=== PATIENT | female | born 1980 | race American Indian/Alaskan Native ===

== ENCOUNTER 2018-06-21 08:20 | Outpatient (CLI) | payer MEDICAID ==
[2018-06-21] MEDS ORDERED: XYLOCAINE TOPICAL 4% TP ONE ×2 (08:33→16:06)
[2018-06-21] MEDS ORDERED: SILVER NITRATE TP ONE ×2 (08:55→16:06)
== END 2018-06-21 08:21 | disposition home or self-care (01) ==
LOC: WOUND 08:20
PROVIDERS: ATTEND Surgery
DX: T81.89XA Other complications of procedures, not elsewhere classified, initial encounter (principal); E11.621 Type 2 diabetes mellitus with foot ulcer; E11.40 Type 2 diabetes mellitus with diabetic neuropathy, unspecified; L97.523 Non-pressure chronic ulcer of other part of left foot with necrosis of muscle; E11.69 Type 2 diabetes mellitus with other specified complication; M86.8X7 Other osteomyelitis, ankle and foot; X58.XXXA Exposure to other specified factors, initial encounter; Y93.89 Activity, other specified; Y92.89 Other specified places as the place of occurrence of the external cause; Y99.8 Other external cause status
CPT/HCPCS: 11043; 11046; G0463; 99204

== ENCOUNTER 2018-06-27 08:21 | Outpatient (CLI) | payer MEDICAID ==
[2018-06-27] MEDS ORDERED: XYLOCAINE TOPICAL 4% TP ONE ×2 (08:38→09:36)
[2018-06-27] MEDS ORDERED: SILVER NITRATE TP ONE ×2 (08:53→09:36)
[2018-06-27] MEDS ORDERED: DAKIN'S FULL STRENGTH ONE (09:14)
[2018-06-27] MEDS ORDERED: DAKIN'S FULL STRENGTH TP ONE (09:36)
== END 2018-06-27 08:22 | disposition home or self-care (01) ==
LOC: WOUND 08:21
PROVIDERS: ATTEND Surgery
DX: T81.89XD Other complications of procedures, not elsewhere classified, subsequent encounter (principal); E11.621 Type 2 diabetes mellitus with foot ulcer; L97.523 Non-pressure chronic ulcer of other part of left foot with necrosis of muscle; E11.40 Type 2 diabetes mellitus with diabetic neuropathy, unspecified; E11.69 Type 2 diabetes mellitus with other specified complication; M86.8X7 Other osteomyelitis, ankle and foot; X58.XXXD Exposure to other specified factors, subsequent encounter

== ENCOUNTER 2018-07-05 12:49 | Outpatient (CLI) | payer MEDICAID ==
[2018-07-05] MEDS ORDERED: XYLOCAINE TOPICAL 4% TP ONE ×2 (13:24→15:41)
== END 2018-07-05 12:50 | disposition home or self-care (01) ==
LOC: WOUND 12:49
PROVIDERS: ATTEND Surgery
DX: T81.89XD Other complications of procedures, not elsewhere classified, subsequent encounter (principal); E11.621 Type 2 diabetes mellitus with foot ulcer; L97.523 Non-pressure chronic ulcer of other part of left foot with necrosis of muscle; E11.40 Type 2 diabetes mellitus with diabetic neuropathy, unspecified; E11.69 Type 2 diabetes mellitus with other specified complication; M86.8X7 Other osteomyelitis, ankle and foot; X58.XXXD Exposure to other specified factors, subsequent encounter
CPT/HCPCS: 11043; 82962; 97605; G0277; 99183

== ENCOUNTER 2018-07-06 12:58 | Outpatient (CLI) | payer MEDICAID | END 2018-07-06 12:59 | disposition home or self-care (01) | LOC: WOUND 12:58 | PROVIDERS: ATTEND Surgery | DX: E11.621 Type 2 diabetes mellitus with foot ulcer (principal); L97.523 Non-pressure chronic ulcer of other part of left foot with necrosis of muscle; E11.40 Type 2 diabetes mellitus with diabetic neuropathy, unspecified; E11.69 Type 2 diabetes mellitus with other specified complication; M86.8X7 Other osteomyelitis, ankle and foot | CPT/HCPCS: 82962; G0277; 99183 ==

== ENCOUNTER 2018-07-07 12:17 | Outpatient (CLI) | payer MEDICAID | END 2018-07-07 12:18 | disposition home or self-care (01) | LOC: WOUND 12:17 | PROVIDERS: ATTEND Surgery | DX: E11.621 Type 2 diabetes mellitus with foot ulcer (principal); L97.523 Non-pressure chronic ulcer of other part of left foot with necrosis of muscle; E11.40 Type 2 diabetes mellitus with diabetic neuropathy, unspecified; E11.69 Type 2 diabetes mellitus with other specified complication; M86.8X7 Other osteomyelitis, ankle and foot | CPT/HCPCS: 82962; G0277; 99183 ==

== ENCOUNTER 2018-07-11 12:00 | Outpatient (CLI) | payer MEDICAID ==
[2018-07-11] MEDS ORDERED: XYLOCAINE TOPICAL 4% TP ONE ×2 (12:06→12:32)
[2018-07-11] MEDS ORDERED: DAKIN'S FULL STRENGTH ONE (13:09)
[2018-07-13] MEDS ORDERED: DAKIN'S FULL STRENGTH TP ONE (12:44)
== END 2018-07-11 12:01 | disposition home or self-care (01) ==
LOC: WOUND 12:00
PROVIDERS: ATTEND Surgery
DX: E11.621 Type 2 diabetes mellitus with foot ulcer (principal); L97.523 Non-pressure chronic ulcer of other part of left foot with necrosis of muscle; E11.40 Type 2 diabetes mellitus with diabetic neuropathy, unspecified; E11.69 Type 2 diabetes mellitus with other specified complication; M86.8X7 Other osteomyelitis, ankle and foot
CPT/HCPCS: 87075; 87116

== ENCOUNTER 2018-09-18 09:01 | Outpatient (CLI) | payer MEDICAID ==
[2018-09-18] MEDS ORDERED: XYLOCAINE TOPICAL 4% TP ONE (09:12)
== END 2018-09-18 09:02 | disposition home or self-care (01) ==
LOC: WOUND 09:01
PROVIDERS: ATTEND Surgery
DX: T81.89XD Other complications of procedures, not elsewhere classified, subsequent encounter (principal); E11.621 Type 2 diabetes mellitus with foot ulcer; L97.523 Non-pressure chronic ulcer of other part of left foot with necrosis of muscle; E11.69 Type 2 diabetes mellitus with other specified complication; M86.8X7 Other osteomyelitis, ankle and foot; E11.40 Type 2 diabetes mellitus with diabetic neuropathy, unspecified; Y83.8 Other surgical procedures as the cause of abnormal reaction of the patient, or of later complication, without mention of misadventure at the time of the procedure
CPT/HCPCS: 11042; G0463; 99213

== ENCOUNTER 2018-09-21 11:41 | Outpatient (CLI) | payer MEDICAID | END 2018-09-21 11:42 | disposition home or self-care (01) | LOC: WOUND 11:41 | PROVIDERS: ATTEND Surgery | DX: T81.89XD Other complications of procedures, not elsewhere classified, subsequent encounter (principal); E11.621 Type 2 diabetes mellitus with foot ulcer; L97.523 Non-pressure chronic ulcer of other part of left foot with necrosis of muscle; E11.69 Type 2 diabetes mellitus with other specified complication; M86.8X7 Other osteomyelitis, ankle and foot; E11.40 Type 2 diabetes mellitus with diabetic neuropathy, unspecified; Y83.8 Other surgical procedures as the cause of abnormal reaction of the patient, or of later complication, without mention of misadventure at the time of the procedure | CPT/HCPCS: 99213; G0463 ==

== ENCOUNTER 2018-09-28 11:23 | Outpatient (CLI) | payer MEDICAID | END 2018-09-28 11:24 | disposition home or self-care (01) | LOC: WOUND 11:23 | PROVIDERS: ATTEND Surgery | DX: T81.89XD Other complications of procedures, not elsewhere classified, subsequent encounter (principal); E11.621 Type 2 diabetes mellitus with foot ulcer; L97.523 Non-pressure chronic ulcer of other part of left foot with necrosis of muscle; E11.69 Type 2 diabetes mellitus with other specified complication; M86.8X7 Other osteomyelitis, ankle and foot; E11.40 Type 2 diabetes mellitus with diabetic neuropathy, unspecified; Y83.8 Other surgical procedures as the cause of abnormal reaction of the patient, or of later complication, without mention of misadventure at the time of the procedure | CPT/HCPCS: 99214; G0463 ==

== ENCOUNTER 2018-10-02 09:46 | Outpatient (CLI) | payer MEDICAID ==
[2018-10-02] MEDS ORDERED: AD OINTMENT TP PRN (10:12)
[2018-10-02] MEDS ORDERED: XYLOCAINE TOPICAL 4% TP ONE (10:12)
== END 2018-10-02 09:47 | disposition home or self-care (01) ==
LOC: WOUND 09:46
PROVIDERS: ATTEND Surgery
DX: T81.89XD Other complications of procedures, not elsewhere classified, subsequent encounter (principal); E11.621 Type 2 diabetes mellitus with foot ulcer; E11.40 Type 2 diabetes mellitus with diabetic neuropathy, unspecified; L97.523 Non-pressure chronic ulcer of other part of left foot with necrosis of muscle; E11.69 Type 2 diabetes mellitus with other specified complication; M86.8X7 Other osteomyelitis, ankle and foot; Y83.8 Other surgical procedures as the cause of abnormal reaction of the patient, or of later complication, without mention of misadventure at the time of the procedure
CPT/HCPCS: 99215; A6250; G0463

== ENCOUNTER 2018-10-05 13:04 | Outpatient (CLI) | payer MEDICAID | END 2018-10-05 13:05 | disposition home or self-care (01) | LOC: WOUND 13:04 | PROVIDERS: ATTEND Surgery | DX: T81.89XD Other complications of procedures, not elsewhere classified, subsequent encounter (principal); E11.621 Type 2 diabetes mellitus with foot ulcer; L97.523 Non-pressure chronic ulcer of other part of left foot with necrosis of muscle; E11.69 Type 2 diabetes mellitus with other specified complication; M86.8X7 Other osteomyelitis, ankle and foot; E11.40 Type 2 diabetes mellitus with diabetic neuropathy, unspecified; Y83.8 Other surgical procedures as the cause of abnormal reaction of the patient, or of later complication, without mention of misadventure at the time of the procedure | CPT/HCPCS: 99213; G0463 ==

== ENCOUNTER 2018-10-09 09:16 | Outpatient (CLI) | payer MEDICAID | END 2018-10-09 09:17 | disposition home or self-care (01) | LOC: WOUND 09:16 | PROVIDERS: ATTEND Surgery | DX: T81.89XD Other complications of procedures, not elsewhere classified, subsequent encounter (principal); E11.621 Type 2 diabetes mellitus with foot ulcer; L97.523 Non-pressure chronic ulcer of other part of left foot with necrosis of muscle; E11.69 Type 2 diabetes mellitus with other specified complication; M86.8X7 Other osteomyelitis, ankle and foot; E11.40 Type 2 diabetes mellitus with diabetic neuropathy, unspecified; Y83.8 Other surgical procedures as the cause of abnormal reaction of the patient, or of later complication, without mention of misadventure at the time of the procedure ==

== ENCOUNTER 2018-10-12 11:31 | Outpatient (CLI) | payer MEDICAID | END 2018-10-12 11:32 | disposition home or self-care (01) | LOC: WOUND 11:31 | PROVIDERS: ATTEND Surgery | DX: T81.89XD Other complications of procedures, not elsewhere classified, subsequent encounter (principal); E11.621 Type 2 diabetes mellitus with foot ulcer; L97.523 Non-pressure chronic ulcer of other part of left foot with necrosis of muscle; E11.69 Type 2 diabetes mellitus with other specified complication; M86.8X7 Other osteomyelitis, ankle and foot; E11.40 Type 2 diabetes mellitus with diabetic neuropathy, unspecified; Y83.8 Other surgical procedures as the cause of abnormal reaction of the patient, or of later complication, without mention of misadventure at the time of the procedure | CPT/HCPCS: 99213; G0463 ==

== ENCOUNTER 2018-10-19 13:02 | Outpatient (CLI) | payer MEDICAID | END 2018-10-19 13:03 | disposition home or self-care (01) | LOC: WOUND 13:02 | PROVIDERS: ATTEND Surgery | DX: T81.89XD Other complications of procedures, not elsewhere classified, subsequent encounter (principal); E11.621 Type 2 diabetes mellitus with foot ulcer; L97.523 Non-pressure chronic ulcer of other part of left foot with necrosis of muscle; E11.69 Type 2 diabetes mellitus with other specified complication; M86.8X7 Other osteomyelitis, ankle and foot; E11.40 Type 2 diabetes mellitus with diabetic neuropathy, unspecified; Y83.8 Other surgical procedures as the cause of abnormal reaction of the patient, or of later complication, without mention of misadventure at the time of the procedure | CPT/HCPCS: 99213; G0463 ==

== ENCOUNTER 2018-10-23 10:06 | Outpatient (CLI) | payer MEDICAID | END 2018-10-23 10:07 | disposition home or self-care (01) | LOC: WOUND 10:06 | PROVIDERS: ATTEND Surgery | DX: T81.89XD Other complications of procedures, not elsewhere classified, subsequent encounter (principal); E11.621 Type 2 diabetes mellitus with foot ulcer; L97.523 Non-pressure chronic ulcer of other part of left foot with necrosis of muscle; E11.69 Type 2 diabetes mellitus with other specified complication; M86.8X7 Other osteomyelitis, ankle and foot; E11.40 Type 2 diabetes mellitus with diabetic neuropathy, unspecified; Y83.8 Other surgical procedures as the cause of abnormal reaction of the patient, or of later complication, without mention of misadventure at the time of the procedure ==

== ENCOUNTER 2018-10-26 11:24 | Outpatient (CLI) | payer MEDICAID | END 2018-10-26 11:25 | disposition home or self-care (01) | LOC: WOUND 11:24 | PROVIDERS: ATTEND Surgery | DX: T81.89XD Other complications of procedures, not elsewhere classified, subsequent encounter (principal); E11.621 Type 2 diabetes mellitus with foot ulcer; L97.523 Non-pressure chronic ulcer of other part of left foot with necrosis of muscle; E11.69 Type 2 diabetes mellitus with other specified complication; M86.8X7 Other osteomyelitis, ankle and foot; E11.40 Type 2 diabetes mellitus with diabetic neuropathy, unspecified; Y83.8 Other surgical procedures as the cause of abnormal reaction of the patient, or of later complication, without mention of misadventure at the time of the procedure | CPT/HCPCS: 99213; G0463 ==

== ENCOUNTER 2018-10-30 09:17 | Outpatient (CLI) | payer MEDICAID | END 2018-10-30 09:18 | disposition home or self-care (01) | LOC: WOUND 09:17 | PROVIDERS: ATTEND Surgery | DX: T81.89XD Other complications of procedures, not elsewhere classified, subsequent encounter (principal); E11.621 Type 2 diabetes mellitus with foot ulcer; L97.523 Non-pressure chronic ulcer of other part of left foot with necrosis of muscle; E11.69 Type 2 diabetes mellitus with other specified complication; M86.8X7 Other osteomyelitis, ankle and foot; L84 Corns and callosities; E11.40 Type 2 diabetes mellitus with diabetic neuropathy, unspecified; Y83.8 Other surgical procedures as the cause of abnormal reaction of the patient, or of later complication, without mention of misadventure at the time of the procedure ==

== ENCOUNTER 2018-11-06 09:22 | Outpatient (CLI) | payer MEDICAID | END 2018-11-06 09:23 | disposition home or self-care (01) | LOC: WOUND 09:22 | PROVIDERS: ATTEND Surgery | DX: T81.89XD Other complications of procedures, not elsewhere classified, subsequent encounter (principal); E11.621 Type 2 diabetes mellitus with foot ulcer; L97.523 Non-pressure chronic ulcer of other part of left foot with necrosis of muscle; E11.69 Type 2 diabetes mellitus with other specified complication; M86.8X7 Other osteomyelitis, ankle and foot; E11.40 Type 2 diabetes mellitus with diabetic neuropathy, unspecified; Y83.8 Other surgical procedures as the cause of abnormal reaction of the patient, or of later complication, without mention of misadventure at the time of the procedure | CPT/HCPCS: 99214; G0463 ==

== ENCOUNTER 2018-11-13 09:02 | Outpatient (CLI) | payer MEDICAID | END 2018-11-13 09:03 | disposition home or self-care (01) | LOC: WOUND 09:02 | PROVIDERS: ATTEND Surgery | DX: T81.89XD Other complications of procedures, not elsewhere classified, subsequent encounter (principal); E11.621 Type 2 diabetes mellitus with foot ulcer; L97.523 Non-pressure chronic ulcer of other part of left foot with necrosis of muscle; E11.69 Type 2 diabetes mellitus with other specified complication; M86.8X7 Other osteomyelitis, ankle and foot; E11.40 Type 2 diabetes mellitus with diabetic neuropathy, unspecified; Y83.8 Other surgical procedures as the cause of abnormal reaction of the patient, or of later complication, without mention of misadventure at the time of the procedure | CPT/HCPCS: 99214; G0463 ==

== ENCOUNTER 2018-11-13 10:32 | Outpatient (CLI) | payer MEDICAID ==
--- NOTE | 2018-11-13 12:16 | Vascular Lab Report ---
FINAL REPORT EXAM: VL VENOUS DUPLEX LE LT HISTORY: PAIN AND SWELLING COMPARISON: None. TECHNIQUE: Duplex Doppler ultrasound of the veins of the bilateral lower extremities was performed. FINDINGS: The veins of the bilateral lower extremities are patent, compressible, and demonstrate normal wavefor ms and augmentation. Incidentally noted is reflux in the left saphenofemoral junction. IMPRESSION: No evidence of deep venous thrombosis of the bilateral lower extremities. Reflux in the left saphenofemoral junction.
== END 2018-11-13 10:33 | disposition home or self-care (01) ==
LOC: VAS 10:32
PROVIDERS: ATTEND Surgery
DX: E11.621 Type 2 diabetes mellitus with foot ulcer (principal); L97.523 Non-pressure chronic ulcer of other part of left foot with necrosis of muscle; M86.8X7 Other osteomyelitis, ankle and foot; K21.9 Gastro-esophageal reflux disease without esophagitis; E66.01 Morbid (severe) obesity due to excess calories

== ENCOUNTER 2018-11-20 09:39 | Outpatient (CLI) | payer MEDICAID ==
[2018-11-20] MEDS ORDERED: SILVER NITRATE TP ONE (10:15)
[2018-11-20] MEDS ORDERED: XYLOCAINE TOPICAL 4% TP ONE (10:15)
== END 2018-11-20 09:40 | disposition home or self-care (01) ==
LOC: WOUND 09:39
PROVIDERS: ATTEND Surgery
DX: T81.89XD Other complications of procedures, not elsewhere classified, subsequent encounter (principal); E11.621 Type 2 diabetes mellitus with foot ulcer; L97.523 Non-pressure chronic ulcer of other part of left foot with necrosis of muscle; E11.69 Type 2 diabetes mellitus with other specified complication; M86.8X7 Other osteomyelitis, ankle and foot; L84 Corns and callosities; E11.40 Type 2 diabetes mellitus with diabetic neuropathy, unspecified; Y83.8 Other surgical procedures as the cause of abnormal reaction of the patient, or of later complication, without mention of misadventure at the time of the procedure

== ENCOUNTER 2018-11-27 09:30 | Outpatient (CLI) | payer MEDICAID ==
[2018-11-27] MEDS ORDERED: SODIUM CHLORIDE FLUSH SYRINGE 10 ML IV PRN (10:10)
== END 2018-11-27 09:31 | disposition home or self-care (01) ==
LOC: WOUND 09:30
PROVIDERS: ATTEND Surgery
DX: T81.89XD Other complications of procedures, not elsewhere classified, subsequent encounter (principal); E11.621 Type 2 diabetes mellitus with foot ulcer; L97.523 Non-pressure chronic ulcer of other part of left foot with necrosis of muscle; E11.69 Type 2 diabetes mellitus with other specified complication; M86.8X7 Other osteomyelitis, ankle and foot; E11.40 Type 2 diabetes mellitus with diabetic neuropathy, unspecified; Y83.8 Other surgical procedures as the cause of abnormal reaction of the patient, or of later complication, without mention of misadventure at the time of the procedure
CPT/HCPCS: 99214; G0463

== ENCOUNTER 2018-12-04 09:22 | Outpatient (CLI) | payer MEDICAID ==
[2018-12-04] MEDS ORDERED: SODIUM CHLORIDE FLUSH SYRINGE 10 ML IV ONE (11:00)
== END 2018-12-04 09:23 | disposition home or self-care (01) ==
LOC: WOUND 09:22
PROVIDERS: ATTEND Surgery
DX: T81.89XD Other complications of procedures, not elsewhere classified, subsequent encounter (principal); E11.621 Type 2 diabetes mellitus with foot ulcer; L97.523 Non-pressure chronic ulcer of other part of left foot with necrosis of muscle; E11.69 Type 2 diabetes mellitus with other specified complication; M86.8X7 Other osteomyelitis, ankle and foot; E11.40 Type 2 diabetes mellitus with diabetic neuropathy, unspecified; Y83.8 Other surgical procedures as the cause of abnormal reaction of the patient, or of later complication, without mention of misadventure at the time of the procedure
CPT/HCPCS: 15275; Q4196

== ENCOUNTER 2018-12-18 09:24 | Outpatient (CLI) | payer MEDICAID ==
[2018-12-18] MEDS ORDERED: XYLOCAINE TOPICAL 4% TP ONE (09:44)
[2018-12-18] MEDS ORDERED: SODIUM CHLORIDE FLUSH SYRINGE 10 ML IV PRN (09:45)
[2018-12-18] MEDS ORDERED: AD OINTMENT TP SCH (10:00)
== END 2018-12-18 09:25 | disposition home or self-care (01) ==
LOC: WOUND 09:24
PROVIDERS: ATTEND Surgery
DX: T81.89XD Other complications of procedures, not elsewhere classified, subsequent encounter (principal); E11.621 Type 2 diabetes mellitus with foot ulcer; L97.523 Non-pressure chronic ulcer of other part of left foot with necrosis of muscle; E11.69 Type 2 diabetes mellitus with other specified complication; M86.8X7 Other osteomyelitis, ankle and foot; E11.40 Type 2 diabetes mellitus with diabetic neuropathy, unspecified; Y83.8 Other surgical procedures as the cause of abnormal reaction of the patient, or of later complication, without mention of misadventure at the time of the procedure
CPT/HCPCS: 15275; Q4196; A6250

== ENCOUNTER 2018-12-25 09:17 | Outpatient (CLI) | payer MEDICAID ==
[2018-12-25] MEDS ORDERED: SODIUM CHLORIDE FLUSH SYRINGE 10 ML IV PRN (10:14)
== END 2018-12-25 09:18 | disposition home or self-care (01) ==
LOC: WOUND 09:17
PROVIDERS: ATTEND Surgery
DX: T81.89XD Other complications of procedures, not elsewhere classified, subsequent encounter (principal); E11.621 Type 2 diabetes mellitus with foot ulcer; L97.523 Non-pressure chronic ulcer of other part of left foot with necrosis of muscle; E11.69 Type 2 diabetes mellitus with other specified complication; M86.8X7 Other osteomyelitis, ankle and foot; E11.40 Type 2 diabetes mellitus with diabetic neuropathy, unspecified; Y83.8 Other surgical procedures as the cause of abnormal reaction of the patient, or of later complication, without mention of misadventure at the time of the procedure
CPT/HCPCS: 15275; Q4196

== ENCOUNTER 2018-12-27 09:26 | Outpatient (CLI) | payer MEDICAID ==
[2018-12-27 10:54] LABS: Blood Urea Nitrogen 14 mg/dL (7-17)
--- NOTE | 2018-12-28 09:25 | Magnetic Resonance Report ---
PROCEDURE: MR LE NONJOINT LT W CON TECHNIQUE: Multisequence, multiplanar MR imaging is obtained through the left foot prior and subsequ ent to intravenous administration of 20 cc MultiHance gadolinium contrast HISTORY: ACUTE OSTEOMYELITIS OF LEFT FOOT, DIABETES, MORBID OBESITY, PAIN COMPARISONS: Radiographs 05/31/2018, MRI 06/02/2018 FINDINGS: There is confluent T1 weighted signal replacing the marrow of the fourth and fifth proximal phalanges with surrounding soft tissue edema. Enhancement within the marrow is demonstrated. Edema extends to the plantar skin surface, which is irregular and also enhancing. No focal organized fluid collection to suggest abscess formation. The fourth and fifth metatarsal heads show more mild edema and enhancem ent without loss of normal T1 weighted marrow signal. No fractures. Midfoot arthropathy is not well e valuated on this exam. The intrinsic muscles and superficial soft tissues of the more medial left foot are unremarkable and show no abnormal enhancement. Flexor and extensor tendons are intact. IMPRESSION: Osteomyelitis in the left fourth and fifth proximal phalanges appears new compared to 2018 exam. Ther e is mild edema in the fourth and fifth metatarsal heads without marrow replacing signal to suggest o steomyelitis on both sides of the metatarsal phalangeal joints. If there is concern for metatarsal ph alangeal septic arthropathy, joint aspiration is recommended. Plantar soft tissue edema in the lateral forefoot without focal fluid collection to suggest abscess f ormation. Notification initiated via Omar support associate following this dictation on 12/28/2018. This document is electronically signed by Orion Henry MD., December 28 2018 09:23:14 AM ET
== END 2018-12-27 09:27 | disposition home or self-care (01) ==
LOC: MRI 09:26
PROVIDERS: ATTEND Internal Medicine Infectious Disease
DX: M86.8X7 Other osteomyelitis, ankle and foot (principal); E11.65 Type 2 diabetes mellitus with hyperglycemia; M86.172 Other acute osteomyelitis, left ankle and foot; E66.01 Morbid (severe) obesity due to excess calories; K21.9 Gastro-esophageal reflux disease without esophagitis; J45.909 Unspecified asthma, uncomplicated
CPT/HCPCS: 36415; 73719; 82565; 84520; A9577

== ENCOUNTER 2019-01-01 09:26 | Outpatient (CLI) | payer MEDICAID ==
[2019-01-01] MEDS ORDERED: SODIUM CHLORIDE FLUSH SYRINGE 10 ML IV ONE (10:02)
== END 2019-01-01 09:27 | disposition home or self-care (01) ==
LOC: WOUND 09:26
PROVIDERS: ATTEND Surgery
DX: T81.89XD Other complications of procedures, not elsewhere classified, subsequent encounter (principal); E11.621 Type 2 diabetes mellitus with foot ulcer; L97.523 Non-pressure chronic ulcer of other part of left foot with necrosis of muscle; E11.69 Type 2 diabetes mellitus with other specified complication; M86.8X7 Other osteomyelitis, ankle and foot; E11.40 Type 2 diabetes mellitus with diabetic neuropathy, unspecified; Y83.8 Other surgical procedures as the cause of abnormal reaction of the patient, or of later complication, without mention of misadventure at the time of the procedure
CPT/HCPCS: 15275; Q4196

== ENCOUNTER 2019-01-08 09:25 | Outpatient (CLI) | payer MEDICAID ==
[2019-01-08] MEDS ORDERED: SODIUM CHLORIDE FLUSH SYRINGE 10 ML IV PRN (10:00)
[2019-01-08] MEDS ORDERED: XYLOCAINE TOPICAL 4% TP ONE (10:00)
== END 2019-01-08 09:26 | disposition home or self-care (01) ==
LOC: WOUND 09:25
PROVIDERS: ATTEND Surgery
DX: T81.89XD Other complications of procedures, not elsewhere classified, subsequent encounter (principal); E11.621 Type 2 diabetes mellitus with foot ulcer; L97.523 Non-pressure chronic ulcer of other part of left foot with necrosis of muscle; E11.69 Type 2 diabetes mellitus with other specified complication; M86.8X7 Other osteomyelitis, ankle and foot; E11.40 Type 2 diabetes mellitus with diabetic neuropathy, unspecified; Y83.8 Other surgical procedures as the cause of abnormal reaction of the patient, or of later complication, without mention of misadventure at the time of the procedure
CPT/HCPCS: 15275; Q4196

== ENCOUNTER 2019-01-15 09:27 | Outpatient (CLI) | payer MEDICAID ==
[2019-01-15] MEDS ORDERED: SODIUM CHLORIDE FLUSH SYRINGE 10 ML IV ONE (10:30)
== END 2019-01-15 09:28 | disposition home or self-care (01) ==
LOC: WOUND 09:27
PROVIDERS: ATTEND Surgery
DX: T81.89XD Other complications of procedures, not elsewhere classified, subsequent encounter (principal); E11.621 Type 2 diabetes mellitus with foot ulcer; L97.523 Non-pressure chronic ulcer of other part of left foot with necrosis of muscle; E11.69 Type 2 diabetes mellitus with other specified complication; M86.8X7 Other osteomyelitis, ankle and foot; E11.40 Type 2 diabetes mellitus with diabetic neuropathy, unspecified; Y83.8 Other surgical procedures as the cause of abnormal reaction of the patient, or of later complication, without mention of misadventure at the time of the procedure
CPT/HCPCS: 15275; Q4196

== ENCOUNTER 2019-01-22 09:22 | Outpatient (CLI) | payer MEDICAID ==
[2019-01-22] MEDS ORDERED: SODIUM CHLORIDE FLUSH SYRINGE 10 ML IV ONE (09:59)
== END 2019-01-22 09:23 | disposition home or self-care (01) ==
LOC: WOUND 09:22
PROVIDERS: ATTEND Surgery
DX: T81.89XD Other complications of procedures, not elsewhere classified, subsequent encounter (principal); E11.621 Type 2 diabetes mellitus with foot ulcer; L97.523 Non-pressure chronic ulcer of other part of left foot with necrosis of muscle; E11.69 Type 2 diabetes mellitus with other specified complication; M86.8X7 Other osteomyelitis, ankle and foot; E11.40 Type 2 diabetes mellitus with diabetic neuropathy, unspecified; Y83.8 Other surgical procedures as the cause of abnormal reaction of the patient, or of later complication, without mention of misadventure at the time of the procedure
CPT/HCPCS: 15275; Q4196

== ENCOUNTER 2019-01-29 11:54 | Outpatient (CLI) | payer MEDICAID ==
[2019-01-29] MEDS ORDERED: SODIUM CHLORIDE FLUSH SYRINGE 10 ML IV PRN ×2 (11:56→12:21)
[2019-01-29] MEDS ORDERED: SILVER NITRATE TP ONE (12:20)
[2019-01-29] MEDS ORDERED: XYLOCAINE TOPICAL 4% TP ONE (12:56)
== END 2019-01-29 11:55 | disposition home or self-care (01) ==
LOC: WOUND 11:54
PROVIDERS: ATTEND Surgery
DX: T81.89XD Other complications of procedures, not elsewhere classified, subsequent encounter (principal); E11.621 Type 2 diabetes mellitus with foot ulcer; L97.523 Non-pressure chronic ulcer of other part of left foot with necrosis of muscle; E11.69 Type 2 diabetes mellitus with other specified complication; M86.8X7 Other osteomyelitis, ankle and foot; E11.40 Type 2 diabetes mellitus with diabetic neuropathy, unspecified; Y83.8 Other surgical procedures as the cause of abnormal reaction of the patient, or of later complication, without mention of misadventure at the time of the procedure
CPT/HCPCS: 15275; Q4196

== ENCOUNTER 2019-02-13 08:24 | Outpatient (CLI) | payer MEDICAID ==
[2019-02-13] MEDS ORDERED: XYLOCAINE TOPICAL 4% TP ONE (09:00)
[2019-02-13] MEDS ORDERED: SODIUM CHLORIDE FLUSH SYRINGE 10 ML IV ONE (09:00)
== END 2019-02-13 08:25 | disposition home or self-care (01) ==
LOC: WOUND 08:24
PROVIDERS: ATTEND Surgery
DX: T81.89XD Other complications of procedures, not elsewhere classified, subsequent encounter (principal); E11.621 Type 2 diabetes mellitus with foot ulcer; L97.523 Non-pressure chronic ulcer of other part of left foot with necrosis of muscle; E11.69 Type 2 diabetes mellitus with other specified complication; M86.8X7 Other osteomyelitis, ankle and foot; E11.40 Type 2 diabetes mellitus with diabetic neuropathy, unspecified; Y83.8 Other surgical procedures as the cause of abnormal reaction of the patient, or of later complication, without mention of misadventure at the time of the procedure

== ENCOUNTER 2019-02-19 09:38 | Outpatient (CLI) | payer MEDICAID ==
[2019-02-19] MEDS ORDERED: SODIUM CHLORIDE FLUSH SYRINGE 10 ML IV ONE (10:30)
== END 2019-02-19 09:39 | disposition home or self-care (01) ==
LOC: WOUND 09:38
PROVIDERS: ATTEND Surgery
DX: T81.89XD Other complications of procedures, not elsewhere classified, subsequent encounter (principal); E11.621 Type 2 diabetes mellitus with foot ulcer; L97.523 Non-pressure chronic ulcer of other part of left foot with necrosis of muscle; E11.69 Type 2 diabetes mellitus with other specified complication; M86.8X7 Other osteomyelitis, ankle and foot; E11.40 Type 2 diabetes mellitus with diabetic neuropathy, unspecified; Y83.8 Other surgical procedures as the cause of abnormal reaction of the patient, or of later complication, without mention of misadventure at the time of the procedure
CPT/HCPCS: 15275

== ENCOUNTER 2019-02-27 09:22 | Outpatient (CLI) | payer MEDICAID ==
[2019-02-27] MEDS ORDERED: SODIUM CHLORIDE FLUSH SYRINGE 10 ML IV PRN (10:00)
[2019-02-27] MEDS ORDERED: XYLOCAINE TOPICAL 4% TP ONE (10:30)
== END 2019-02-27 09:23 | disposition home or self-care (01) ==
LOC: WOUND 09:22
PROVIDERS: ATTEND Surgery
DX: T81.89XD Other complications of procedures, not elsewhere classified, subsequent encounter (principal); E11.621 Type 2 diabetes mellitus with foot ulcer; L97.523 Non-pressure chronic ulcer of other part of left foot with necrosis of muscle; E11.69 Type 2 diabetes mellitus with other specified complication; M86.8X7 Other osteomyelitis, ankle and foot; E11.40 Type 2 diabetes mellitus with diabetic neuropathy, unspecified; Y83.8 Other surgical procedures as the cause of abnormal reaction of the patient, or of later complication, without mention of misadventure at the time of the procedure
CPT/HCPCS: 15275; Q4158

== ENCOUNTER 2019-03-05 09:19 | Outpatient (CLI) | payer MEDICAID ==
[2019-03-05] MEDS ORDERED: SILVER NITRATE TP ONE (10:00)
[2019-03-05] MEDS ORDERED: SODIUM CHLORIDE FLUSH SYRINGE 10 ML IV PRN (10:00)
== END 2019-03-05 09:20 | disposition home or self-care (01) ==
LOC: WOUND 09:19
PROVIDERS: ATTEND Surgery
DX: T81.89XD Other complications of procedures, not elsewhere classified, subsequent encounter (principal); E11.621 Type 2 diabetes mellitus with foot ulcer; L97.523 Non-pressure chronic ulcer of other part of left foot with necrosis of muscle; E11.69 Type 2 diabetes mellitus with other specified complication; M86.8X7 Other osteomyelitis, ankle and foot; E44.0 Moderate protein-calorie malnutrition; Y83.8 Other surgical procedures as the cause of abnormal reaction of the patient, or of later complication, without mention of misadventure at the time of the procedure
CPT/HCPCS: 99214; G0463

== ENCOUNTER 2019-03-12 09:39 | Outpatient (CLI) | payer MEDICAID ==
[2019-03-12] MEDS ORDERED: XYLOCAINE TOPICAL 4% TP ONE (10:00)
== END 2019-03-12 09:40 | disposition home or self-care (01) ==
LOC: WOUND 09:39
PROVIDERS: ATTEND Surgery
DX: T81.89XD Other complications of procedures, not elsewhere classified, subsequent encounter (principal); E11.621 Type 2 diabetes mellitus with foot ulcer; L97.523 Non-pressure chronic ulcer of other part of left foot with necrosis of muscle; E11.69 Type 2 diabetes mellitus with other specified complication; M86.8X7 Other osteomyelitis, ankle and foot; E44.0 Moderate protein-calorie malnutrition; Y83.8 Other surgical procedures as the cause of abnormal reaction of the patient, or of later complication, without mention of misadventure at the time of the procedure

== ENCOUNTER 2019-03-19 09:35 | Outpatient (CLI) | payer MEDICAID | END 2019-03-19 09:36 | disposition home or self-care (01) | LOC: WOUND 09:35 | PROVIDERS: ATTEND Surgery | DX: T81.89XD Other complications of procedures, not elsewhere classified, subsequent encounter (principal); E11.621 Type 2 diabetes mellitus with foot ulcer; L97.523 Non-pressure chronic ulcer of other part of left foot with necrosis of muscle; E11.69 Type 2 diabetes mellitus with other specified complication; M86.8X7 Other osteomyelitis, ankle and foot; Y83.8 Other surgical procedures as the cause of abnormal reaction of the patient, or of later complication, without mention of misadventure at the time of the procedure ==

== ENCOUNTER 2019-03-26 10:06 | Outpatient (CLI) | payer MEDICAID | END 2019-03-26 10:07 | disposition home or self-care (01) | LOC: WOUND 10:06 | PROVIDERS: ATTEND Surgery | DX: T81.89XD Other complications of procedures, not elsewhere classified, subsequent encounter (principal); E11.621 Type 2 diabetes mellitus with foot ulcer; L97.523 Non-pressure chronic ulcer of other part of left foot with necrosis of muscle; E11.40 Type 2 diabetes mellitus with diabetic neuropathy, unspecified; E11.69 Type 2 diabetes mellitus with other specified complication; M86.8X7 Other osteomyelitis, ankle and foot; Y83.8 Other surgical procedures as the cause of abnormal reaction of the patient, or of later complication, without mention of misadventure at the time of the procedure ==

== ENCOUNTER 2019-04-02 09:22 | Outpatient (CLI) | payer MEDICAID ==
[2019-04-02] MEDS ORDERED: XYLOCAINE TOPICAL 4% TP ONE (10:00)
== END 2019-04-02 09:23 | disposition home or self-care (01) ==
LOC: WOUND 09:22
PROVIDERS: ATTEND Surgery
DX: T81.89XD Other complications of procedures, not elsewhere classified, subsequent encounter (principal); E11.621 Type 2 diabetes mellitus with foot ulcer; L97.523 Non-pressure chronic ulcer of other part of left foot with necrosis of muscle; E11.40 Type 2 diabetes mellitus with diabetic neuropathy, unspecified; E11.69 Type 2 diabetes mellitus with other specified complication; M86.8X7 Other osteomyelitis, ankle and foot; Y83.8 Other surgical procedures as the cause of abnormal reaction of the patient, or of later complication, without mention of misadventure at the time of the procedure

== ENCOUNTER 2019-04-09 09:41 | Outpatient (CLI) | payer MEDICAID | END 2019-04-09 09:42 | disposition home or self-care (01) | LOC: WOUND 09:41 | PROVIDERS: ATTEND Surgery | DX: T81.89XD Other complications of procedures, not elsewhere classified, subsequent encounter (principal); E11.621 Type 2 diabetes mellitus with foot ulcer; L97.523 Non-pressure chronic ulcer of other part of left foot with necrosis of muscle; E11.40 Type 2 diabetes mellitus with diabetic neuropathy, unspecified; E11.69 Type 2 diabetes mellitus with other specified complication; M86.8X7 Other osteomyelitis, ankle and foot; Y83.8 Other surgical procedures as the cause of abnormal reaction of the patient, or of later complication, without mention of misadventure at the time of the procedure ==

== ENCOUNTER 2019-04-16 09:10 | Outpatient (CLI) | payer MEDICAID ==
[2019-04-16] MEDS ORDERED: XYLOCAINE TOPICAL 4% TP ONE (10:00)
== END 2019-04-16 09:11 | disposition home or self-care (01) ==
LOC: WOUND 09:10
PROVIDERS: ATTEND Surgery
DX: T81.89XD Other complications of procedures, not elsewhere classified, subsequent encounter (principal); E11.621 Type 2 diabetes mellitus with foot ulcer; L97.523 Non-pressure chronic ulcer of other part of left foot with necrosis of muscle; L84 Corns and callosities; E11.40 Type 2 diabetes mellitus with diabetic neuropathy, unspecified; E11.69 Type 2 diabetes mellitus with other specified complication; M86.8X7 Other osteomyelitis, ankle and foot; Y83.8 Other surgical procedures as the cause of abnormal reaction of the patient, or of later complication, without mention of misadventure at the time of the procedure

== ENCOUNTER 2019-07-16 09:50 | Outpatient (CLI) | payer MEDICAID ==
[2019-07-16] MEDS ORDERED: SILVER NITRATE APPLICATOR 1 EA TP ONE (10:30)
[2019-07-16] MEDS ORDERED: LIDOCAINE (4%) 40 MG/ML TOPICAL SOLN 50 ML BOTTLE TP ONE (10:30)
== END 2019-07-16 09:51 | disposition home or self-care (01) ==
LOC: WOUND 09:50
PROVIDERS: ATTEND Surgery
DX: E11.621 Type 2 diabetes mellitus with foot ulcer (principal); L97.522 Non-pressure chronic ulcer of other part of left foot with fat layer exposed; E11.40 Type 2 diabetes mellitus with diabetic neuropathy, unspecified; J45.909 Unspecified asthma, uncomplicated; Z79.4 Long term (current) use of insulin

== ENCOUNTER 2019-07-19 13:51 | Outpatient (CLI) | payer MEDICAID ==
[2019-07-19] MEDS ORDERED: SODIUM CHLORIDE 0.9% IRR 500 ML BOTTLE IR ONE (14:36)
== END 2019-07-19 13:52 | disposition home or self-care (01) ==
LOC: WOUND 13:51
PROVIDERS: ATTEND Surgery
DX: E11.621 Type 2 diabetes mellitus with foot ulcer (principal); L97.522 Non-pressure chronic ulcer of other part of left foot with fat layer exposed; E11.40 Type 2 diabetes mellitus with diabetic neuropathy, unspecified; J45.909 Unspecified asthma, uncomplicated; Z79.4 Long term (current) use of insulin
CPT/HCPCS: 99213; G0463

== ENCOUNTER 2019-07-23 09:52 | Outpatient (CLI) | payer MEDICAID ==
[2019-07-23] MEDS ORDERED: LIDOCAINE (4%) 40 MG/ML TOPICAL SOLN 50 ML BOTTLE TP ONE (10:30)
== END 2019-07-23 09:53 | disposition home or self-care (01) ==
LOC: WOUND 09:52
PROVIDERS: ATTEND Surgery
DX: E11.621 Type 2 diabetes mellitus with foot ulcer (principal); L97.522 Non-pressure chronic ulcer of other part of left foot with fat layer exposed; E11.40 Type 2 diabetes mellitus with diabetic neuropathy, unspecified; Z79.4 Long term (current) use of insulin

== ENCOUNTER 2019-07-30 10:19 | Outpatient (CLI) | payer MEDICAID ==
[2019-07-30] MEDS ORDERED: LIDOCAINE (4%) 40 MG/ML TOPICAL SOLN 50 ML BOTTLE TP ONE (11:47)
== END 2019-07-30 10:20 | disposition home or self-care (01) ==
LOC: WOUND 10:19
PROVIDERS: ATTEND Surgery
DX: E11.621 Type 2 diabetes mellitus with foot ulcer (principal); L97.522 Non-pressure chronic ulcer of other part of left foot with fat layer exposed; E11.40 Type 2 diabetes mellitus with diabetic neuropathy, unspecified; Z79.4 Long term (current) use of insulin

== ENCOUNTER 2019-08-06 09:52 | Outpatient (CLI) | payer MEDICAID ==
[2019-08-06] MEDS ORDERED: LIDOCAINE (4%) 40 MG/ML TOPICAL SOLN 50 ML BOTTLE TP ONE (10:27)
== END 2019-08-06 09:53 | disposition home or self-care (01) ==
LOC: WOUND 09:52
PROVIDERS: ATTEND Surgery
DX: E11.621 Type 2 diabetes mellitus with foot ulcer (principal); L97.522 Non-pressure chronic ulcer of other part of left foot with fat layer exposed; E11.40 Type 2 diabetes mellitus with diabetic neuropathy, unspecified; Z79.4 Long term (current) use of insulin

== ENCOUNTER 2019-08-13 09:55 | Outpatient (CLI) | payer MEDICAID ==
[2019-08-13] MEDS ORDERED: LIDOCAINE (4%) 40 MG/ML TOPICAL SOLN 50 ML BOTTLE TP ONE (10:12)
== END 2019-08-13 09:56 | disposition home or self-care (01) ==
LOC: WOUND 09:55
PROVIDERS: ATTEND Surgery
DX: E11.621 Type 2 diabetes mellitus with foot ulcer (principal); L97.522 Non-pressure chronic ulcer of other part of left foot with fat layer exposed; E11.40 Type 2 diabetes mellitus with diabetic neuropathy, unspecified

== ENCOUNTER 2019-09-10 10:42 | Outpatient (CLI) | payer MEDICAID ==
[2019-09-10] MEDS ORDERED: LIDOCAINE (4%) 40 MG/ML TOPICAL SOLN 50 ML BOTTLE TP ONE (11:30)
== END 2019-09-10 10:43 | disposition home or self-care (01) ==
LOC: WOUND 10:42
PROVIDERS: ATTEND Surgery
DX: E11.621 Type 2 diabetes mellitus with foot ulcer (principal); L97.522 Non-pressure chronic ulcer of other part of left foot with fat layer exposed; E11.40 Type 2 diabetes mellitus with diabetic neuropathy, unspecified
CPT/HCPCS: 82962

== ENCOUNTER 2019-10-01 10:28 | Outpatient (CLI) | payer MEDICAID ==
[2019-10-01] MEDS ORDERED: LIDOCAINE (4%) 40 MG/ML TOPICAL SOLN 50 ML BOTTLE TP ONE (11:04)
== END 2019-10-01 10:29 | disposition home or self-care (01) ==
LOC: WOUND 10:28
PROVIDERS: ATTEND Surgery
DX: E11.621 Type 2 diabetes mellitus with foot ulcer (principal); L97.522 Non-pressure chronic ulcer of other part of left foot with fat layer exposed; E11.40 Type 2 diabetes mellitus with diabetic neuropathy, unspecified

== ENCOUNTER 2019-10-15 10:20 | Outpatient (CLI) | payer MEDICAID ==
[2019-10-15] MEDS ORDERED: LIDOCAINE (4%) 40 MG/ML TOPICAL SOLN 50 ML BOTTLE TP ONE (11:00)
== END 2019-10-15 10:21 | disposition home or self-care (01) ==
LOC: WOUND 10:20
PROVIDERS: ATTEND Surgery
DX: E11.621 Type 2 diabetes mellitus with foot ulcer (principal); L97.522 Non-pressure chronic ulcer of other part of left foot with fat layer exposed; E11.40 Type 2 diabetes mellitus with diabetic neuropathy, unspecified

== ENCOUNTER 2019-10-29 10:20 | Outpatient (CLI) | payer MEDICAID ==
[2019-10-29] MEDS ORDERED: LIDOCAINE (4%) 40 MG/ML TOPICAL SOLN 50 ML BOTTLE TP ONE (10:30)
== END 2019-10-29 10:21 | disposition home or self-care (01) ==
LOC: WOUND 10:20
PROVIDERS: ATTEND Surgery
DX: E11.621 Type 2 diabetes mellitus with foot ulcer (principal); L97.522 Non-pressure chronic ulcer of other part of left foot with fat layer exposed; E11.40 Type 2 diabetes mellitus with diabetic neuropathy, unspecified

== ENCOUNTER 2019-11-05 10:25 | Outpatient (CLI) | payer MEDICAID ==
[2019-11-05] MEDS ORDERED: LIDOCAINE (4%) 40 MG/ML TOPICAL SOLN 50 ML BOTTLE TP ONE (11:12)
== END 2019-11-05 10:26 | disposition home or self-care (01) ==
LOC: WOUND 10:25
PROVIDERS: ATTEND Surgery
DX: E11.621 Type 2 diabetes mellitus with foot ulcer (principal); L97.522 Non-pressure chronic ulcer of other part of left foot with fat layer exposed; E11.40 Type 2 diabetes mellitus with diabetic neuropathy, unspecified

== ENCOUNTER 2019-12-03 10:20 | Outpatient (CLI) | payer MEDICAID ==
[2019-12-03] MEDS ORDERED: LIDOCAINE (4%) 40 MG/ML TOPICAL SOLN 50 ML BOTTLE TP ONE (11:30)
== END 2019-12-03 10:21 | disposition home or self-care (01) ==
LOC: WOUND 10:20
PROVIDERS: ATTEND Surgery
DX: E11.621 Type 2 diabetes mellitus with foot ulcer (principal); L97.522 Non-pressure chronic ulcer of other part of left foot with fat layer exposed; E11.40 Type 2 diabetes mellitus with diabetic neuropathy, unspecified

== ENCOUNTER 2020-02-25 09:59 | Outpatient (CLI) | payer MEDICAID ==
[2020-02-25] MEDS ORDERED: LIDOCAINE (4%) 40 MG/ML TOPICAL SOLN 50 ML BOTTLE TP ONE (10:24)
== END 2020-02-25 10:00 | disposition home or self-care (01) ==
LOC: WOUND 09:59
PROVIDERS: ATTEND Surgery
DX: E11.621 Type 2 diabetes mellitus with foot ulcer (principal); L97.522 Non-pressure chronic ulcer of other part of left foot with fat layer exposed; E11.40 Type 2 diabetes mellitus with diabetic neuropathy, unspecified

== ENCOUNTER 2020-06-16 10:50 | Outpatient (CLI) | payer MEDICAID ==
[2020-06-16] MEDS ORDERED: SILVER NITRATE APPLICATOR 1 EA TP NR (11:36)
[2020-06-16] MEDS ORDERED: LIDOCAINE (4%) 40 MG/ML TOPICAL SOLN 50 ML BOTTLE TP NR (11:36)
== END 2020-06-16 10:51 | disposition home or self-care (01) ==
LOC: WOUND 10:50
PROVIDERS: ATTEND Surgery
DX: E11.621 Type 2 diabetes mellitus with foot ulcer (principal); L97.522 Non-pressure chronic ulcer of other part of left foot with fat layer exposed; L84 Corns and callosities; S50.821A Blister (nonthermal) of right forearm, initial encounter; E11.22 Type 2 diabetes mellitus with diabetic chronic kidney disease; E11.69 Type 2 diabetes mellitus with other specified complication; M86.372 Chronic multifocal osteomyelitis, left ankle and foot; I13.0 Hypertensive heart and chronic kidney disease with heart failure and stage 1 through stage 4 chronic kidney disease, or unspecified chronic kidney disease; N18.3 Chronic kidney disease, stage 3 (moderate); I50.9 Heart failure, unspecified; E11.40 Type 2 diabetes mellitus with diabetic neuropathy, unspecified; X58.XXXA Exposure to other specified factors, initial encounter; Y93.89 Activity, other specified; Y92.89 Other specified places as the place of occurrence of the external cause; Y99.8 Other external cause status

== ENCOUNTER 2020-06-23 10:44 | Outpatient (CLI) | payer MEDICAID ==
[2020-06-23] MEDS ORDERED: LIDOCAINE (4%) 40 MG/ML TOPICAL SOLN 50 ML BOTTLE TP ONE (11:00)
== END 2020-06-23 10:45 | disposition home or self-care (01) ==
LOC: WOUND 10:44
PROVIDERS: ATTEND Surgery
DX: E11.621 Type 2 diabetes mellitus with foot ulcer (principal); L97.522 Non-pressure chronic ulcer of other part of left foot with fat layer exposed; L84 Corns and callosities; E11.69 Type 2 diabetes mellitus with other specified complication; M86.372 Chronic multifocal osteomyelitis, left ankle and foot; E11.22 Type 2 diabetes mellitus with diabetic chronic kidney disease; I13.0 Hypertensive heart and chronic kidney disease with heart failure and stage 1 through stage 4 chronic kidney disease, or unspecified chronic kidney disease; I50.9 Heart failure, unspecified; N18.30 Chronic kidney disease, stage 3 unspecified; E11.40 Type 2 diabetes mellitus with diabetic neuropathy, unspecified

== ENCOUNTER 2020-07-17 13:16 | Outpatient (CLI) | payer MEDICAID | END 2020-07-17 13:17 | disposition home or self-care (01) | LOC: WOUND 13:16 | PROVIDERS: ATTEND Surgery | DX: E11.621 Type 2 diabetes mellitus with foot ulcer (principal); L97.522 Non-pressure chronic ulcer of other part of left foot with fat layer exposed; L84 Corns and callosities; E11.69 Type 2 diabetes mellitus with other specified complication; M86.372 Chronic multifocal osteomyelitis, left ankle and foot; E11.22 Type 2 diabetes mellitus with diabetic chronic kidney disease; I13.0 Hypertensive heart and chronic kidney disease with heart failure and stage 1 through stage 4 chronic kidney disease, or unspecified chronic kidney disease; I50.9 Heart failure, unspecified; N18.30 Chronic kidney disease, stage 3 unspecified; E11.40 Type 2 diabetes mellitus with diabetic neuropathy, unspecified | CPT/HCPCS: 99212; G0463 ==

== ENCOUNTER 2020-07-28 08:19 | Outpatient (CLI) | payer MEDICAID ==
[2020-07-28] MEDS ORDERED: LIDOCAINE (4%) 40 MG/ML TOPICAL SOLN 50 ML BOTTLE TP ONE (08:30)
== END 2020-07-28 08:20 | disposition home or self-care (01) ==
LOC: WOUND 08:19
PROVIDERS: ATTEND Surgery
DX: E11.621 Type 2 diabetes mellitus with foot ulcer (principal); L97.522 Non-pressure chronic ulcer of other part of left foot with fat layer exposed; L84 Corns and callosities; E11.69 Type 2 diabetes mellitus with other specified complication; M86.372 Chronic multifocal osteomyelitis, left ankle and foot; E11.22 Type 2 diabetes mellitus with diabetic chronic kidney disease; I13.0 Hypertensive heart and chronic kidney disease with heart failure and stage 1 through stage 4 chronic kidney disease, or unspecified chronic kidney disease; I50.9 Heart failure, unspecified; N18.30 Chronic kidney disease, stage 3 unspecified; E11.40 Type 2 diabetes mellitus with diabetic neuropathy, unspecified

== ENCOUNTER 2020-08-04 08:31 | Outpatient (CLI) | payer MEDICAID ==
[2020-08-04] MEDS ORDERED: LIDOCAINE (4%) 40 MG/ML TOPICAL SOLN 50 ML BOTTLE TP ONE (08:42)
== END 2020-08-04 08:32 | disposition home or self-care (01) ==
LOC: WOUND 08:31
PROVIDERS: ATTEND Surgery
DX: E11.621 Type 2 diabetes mellitus with foot ulcer (principal); L97.522 Non-pressure chronic ulcer of other part of left foot with fat layer exposed; L84 Corns and callosities; E11.69 Type 2 diabetes mellitus with other specified complication; M86.372 Chronic multifocal osteomyelitis, left ankle and foot; E11.22 Type 2 diabetes mellitus with diabetic chronic kidney disease; I13.0 Hypertensive heart and chronic kidney disease with heart failure and stage 1 through stage 4 chronic kidney disease, or unspecified chronic kidney disease; I50.9 Heart failure, unspecified; N18.30 Chronic kidney disease, stage 3 unspecified; E11.40 Type 2 diabetes mellitus with diabetic neuropathy, unspecified

== ENCOUNTER 2020-08-11 08:44 | Outpatient (CLI) | payer MEDICAID ==
[2020-08-11] MEDS ORDERED: LIDOCAINE (4%) 40 MG/ML TOPICAL SOLN 50 ML BOTTLE TP ONE (09:30)
== END 2020-08-11 08:45 | disposition home or self-care (01) ==
LOC: WOUND 08:44
PROVIDERS: ATTEND Surgery
DX: E11.621 Type 2 diabetes mellitus with foot ulcer (principal); L97.522 Non-pressure chronic ulcer of other part of left foot with fat layer exposed; L84 Corns and callosities; E11.69 Type 2 diabetes mellitus with other specified complication; M86.372 Chronic multifocal osteomyelitis, left ankle and foot; E11.40 Type 2 diabetes mellitus with diabetic neuropathy, unspecified; E11.22 Type 2 diabetes mellitus with diabetic chronic kidney disease; I13.0 Hypertensive heart and chronic kidney disease with heart failure and stage 1 through stage 4 chronic kidney disease, or unspecified chronic kidney disease; I50.9 Heart failure, unspecified; N18.30 Chronic kidney disease, stage 3 unspecified; E11.43 Type 2 diabetes mellitus with diabetic autonomic (poly)neuropathy; K31.84 Gastroparesis
CPT/HCPCS: 82962

== ENCOUNTER 2020-08-25 08:27 | Outpatient (CLI) | payer MEDICAID ==
[2020-08-25] MEDS ORDERED: LIDOCAINE (4%) 40 MG/ML TOPICAL SOLN 50 ML BOTTLE TP SCH (09:23)
== END 2020-08-25 08:28 | disposition home or self-care (01) ==
LOC: WOUND 08:27
PROVIDERS: ATTEND Surgery
DX: E11.621 Type 2 diabetes mellitus with foot ulcer (principal); L97.522 Non-pressure chronic ulcer of other part of left foot with fat layer exposed; L84 Corns and callosities; E11.69 Type 2 diabetes mellitus with other specified complication; M86.372 Chronic multifocal osteomyelitis, left ankle and foot; E11.40 Type 2 diabetes mellitus with diabetic neuropathy, unspecified; E11.22 Type 2 diabetes mellitus with diabetic chronic kidney disease; I13.0 Hypertensive heart and chronic kidney disease with heart failure and stage 1 through stage 4 chronic kidney disease, or unspecified chronic kidney disease; I50.9 Heart failure, unspecified; N18.30 Chronic kidney disease, stage 3 unspecified; E11.43 Type 2 diabetes mellitus with diabetic autonomic (poly)neuropathy; K31.84 Gastroparesis
CPT/HCPCS: 15275; 82962; Q4186

== ENCOUNTER 2020-09-01 08:17 | Outpatient (CLI) | payer MEDICAID ==
[2020-09-01] MEDS ORDERED: LIDOCAINE (4%) 40 MG/ML TOPICAL SOLN 50 ML BOTTLE TP ONE (09:45)
== END 2020-09-01 08:18 | disposition home or self-care (01) ==
LOC: WOUND 08:17
PROVIDERS: ATTEND Surgery
DX: E11.621 Type 2 diabetes mellitus with foot ulcer (principal); L97.522 Non-pressure chronic ulcer of other part of left foot with fat layer exposed; L84 Corns and callosities; E11.69 Type 2 diabetes mellitus with other specified complication; M86.372 Chronic multifocal osteomyelitis, left ankle and foot; E11.40 Type 2 diabetes mellitus with diabetic neuropathy, unspecified; E11.22 Type 2 diabetes mellitus with diabetic chronic kidney disease; I13.0 Hypertensive heart and chronic kidney disease with heart failure and stage 1 through stage 4 chronic kidney disease, or unspecified chronic kidney disease; I50.9 Heart failure, unspecified; N18.30 Chronic kidney disease, stage 3 unspecified; E11.43 Type 2 diabetes mellitus with diabetic autonomic (poly)neuropathy; K31.84 Gastroparesis
CPT/HCPCS: 15275; Q4186

== ENCOUNTER 2020-09-08 08:50 | Outpatient (CLI) | payer MEDICAID ==
[2020-09-08] MEDS ORDERED: LIDOCAINE (4%) 40 MG/ML TOPICAL SOLN 50 ML BOTTLE TP ONE (08:55)
== END 2020-09-08 08:51 | disposition home or self-care (01) ==
LOC: WOUND 08:50
PROVIDERS: ATTEND Surgery
DX: E11.621 Type 2 diabetes mellitus with foot ulcer (principal); L97.522 Non-pressure chronic ulcer of other part of left foot with fat layer exposed; L84 Corns and callosities; E11.69 Type 2 diabetes mellitus with other specified complication; M86.372 Chronic multifocal osteomyelitis, left ankle and foot; E11.40 Type 2 diabetes mellitus with diabetic neuropathy, unspecified; E11.22 Type 2 diabetes mellitus with diabetic chronic kidney disease; I13.0 Hypertensive heart and chronic kidney disease with heart failure and stage 1 through stage 4 chronic kidney disease, or unspecified chronic kidney disease; I50.9 Heart failure, unspecified; N18.30 Chronic kidney disease, stage 3 unspecified; E11.43 Type 2 diabetes mellitus with diabetic autonomic (poly)neuropathy; K31.84 Gastroparesis

== ENCOUNTER 2020-09-22 08:01 | Outpatient (CLI) | payer MEDICAID ==
[2020-09-22] MEDS ORDERED: LIDOCAINE (4%) 40 MG/ML TOPICAL SOLN 50 ML BOTTLE TP SCH (08:30)
== END 2020-09-22 08:02 | disposition home or self-care (01) ==
LOC: WOUND 08:01
PROVIDERS: ATTEND Surgery
DX: E11.621 Type 2 diabetes mellitus with foot ulcer (principal); L97.522 Non-pressure chronic ulcer of other part of left foot with fat layer exposed; E11.69 Type 2 diabetes mellitus with other specified complication; M86.372 Chronic multifocal osteomyelitis, left ankle and foot; E11.40 Type 2 diabetes mellitus with diabetic neuropathy, unspecified; E11.22 Type 2 diabetes mellitus with diabetic chronic kidney disease; I13.0 Hypertensive heart and chronic kidney disease with heart failure and stage 1 through stage 4 chronic kidney disease, or unspecified chronic kidney disease; I50.9 Heart failure, unspecified; N18.30 Chronic kidney disease, stage 3 unspecified; E11.43 Type 2 diabetes mellitus with diabetic autonomic (poly)neuropathy; K31.84 Gastroparesis; L84 Corns and callosities; Z79.82 Long term (current) use of aspirin; Z79.4 Long term (current) use of insulin
CPT/HCPCS: 82962

== ENCOUNTER 2020-10-13 08:32 | Outpatient (CLI) | payer MEDICAID ==
[2020-10-13] MEDS ORDERED: LIDOCAINE (4%) 40 MG/ML TOPICAL SOLN 50 ML BOTTLE TP ONE (09:00)
== END 2020-10-13 08:33 | disposition home or self-care (01) ==
LOC: WOUND 08:32
PROVIDERS: ATTEND Surgery
DX: E11.621 Type 2 diabetes mellitus with foot ulcer (principal); L97.522 Non-pressure chronic ulcer of other part of left foot with fat layer exposed; E11.69 Type 2 diabetes mellitus with other specified complication; M86.372 Chronic multifocal osteomyelitis, left ankle and foot; E11.40 Type 2 diabetes mellitus with diabetic neuropathy, unspecified; E11.22 Type 2 diabetes mellitus with diabetic chronic kidney disease; I13.0 Hypertensive heart and chronic kidney disease with heart failure and stage 1 through stage 4 chronic kidney disease, or unspecified chronic kidney disease; I50.9 Heart failure, unspecified; N18.30 Chronic kidney disease, stage 3 unspecified; E11.43 Type 2 diabetes mellitus with diabetic autonomic (poly)neuropathy; K31.84 Gastroparesis; L84 Corns and callosities; Z79.82 Long term (current) use of aspirin; Z79.4 Long term (current) use of insulin

== ENCOUNTER 2020-10-20 08:49 | Outpatient (CLI) | payer MEDICAID ==
[2020-10-20] MEDS ORDERED: LIDOCAINE (4%) 40 MG/ML TOPICAL SOLN 50 ML BOTTLE TP NR (09:02)
== END 2020-10-20 08:50 | disposition home or self-care (01) ==
LOC: WOUND 08:49
PROVIDERS: ATTEND Surgery
DX: E11.621 Type 2 diabetes mellitus with foot ulcer (principal); L97.522 Non-pressure chronic ulcer of other part of left foot with fat layer exposed; E11.69 Type 2 diabetes mellitus with other specified complication; M86.372 Chronic multifocal osteomyelitis, left ankle and foot; E11.40 Type 2 diabetes mellitus with diabetic neuropathy, unspecified; E11.22 Type 2 diabetes mellitus with diabetic chronic kidney disease; I13.0 Hypertensive heart and chronic kidney disease with heart failure and stage 1 through stage 4 chronic kidney disease, or unspecified chronic kidney disease; I50.9 Heart failure, unspecified; N18.30 Chronic kidney disease, stage 3 unspecified; E11.43 Type 2 diabetes mellitus with diabetic autonomic (poly)neuropathy; K31.84 Gastroparesis; L84 Corns and callosities; Z79.82 Long term (current) use of aspirin; Z79.4 Long term (current) use of insulin
CPT/HCPCS: 82962

== ENCOUNTER 2020-10-27 08:41 | Outpatient (CLI) | payer MEDICAID ==
[2020-10-27] MEDS ORDERED: LIDOCAINE (4%) 40 MG/ML TOPICAL SOLN 50 ML BOTTLE TP ONE (10:00)
== END 2020-10-27 08:42 | disposition home or self-care (01) ==
LOC: WOUND 08:41
PROVIDERS: ATTEND Surgery
DX: E11.621 Type 2 diabetes mellitus with foot ulcer (principal); L97.522 Non-pressure chronic ulcer of other part of left foot with fat layer exposed; E11.69 Type 2 diabetes mellitus with other specified complication; M86.372 Chronic multifocal osteomyelitis, left ankle and foot; E11.40 Type 2 diabetes mellitus with diabetic neuropathy, unspecified; E11.22 Type 2 diabetes mellitus with diabetic chronic kidney disease; I13.0 Hypertensive heart and chronic kidney disease with heart failure and stage 1 through stage 4 chronic kidney disease, or unspecified chronic kidney disease; I50.9 Heart failure, unspecified; N18.30 Chronic kidney disease, stage 3 unspecified; E11.43 Type 2 diabetes mellitus with diabetic autonomic (poly)neuropathy; K31.84 Gastroparesis; L84 Corns and callosities; Z79.82 Long term (current) use of aspirin; Z79.4 Long term (current) use of insulin

== ENCOUNTER 2020-11-03 08:55 | Outpatient (CLI) | payer MEDICAID ==
[2020-11-03] MEDS ORDERED: LIDOCAINE (4%) 40 MG/ML TOPICAL SOLN 50 ML BOTTLE TP ONE (09:14)
== END 2020-11-03 08:56 | disposition home or self-care (01) ==
LOC: WOUND 08:55
PROVIDERS: ATTEND Surgery
DX: E11.621 Type 2 diabetes mellitus with foot ulcer (principal); L97.522 Non-pressure chronic ulcer of other part of left foot with fat layer exposed; E11.69 Type 2 diabetes mellitus with other specified complication; M86.372 Chronic multifocal osteomyelitis, left ankle and foot; E11.40 Type 2 diabetes mellitus with diabetic neuropathy, unspecified; E11.22 Type 2 diabetes mellitus with diabetic chronic kidney disease; I13.0 Hypertensive heart and chronic kidney disease with heart failure and stage 1 through stage 4 chronic kidney disease, or unspecified chronic kidney disease; I50.9 Heart failure, unspecified; N18.30 Chronic kidney disease, stage 3 unspecified; E11.43 Type 2 diabetes mellitus with diabetic autonomic (poly)neuropathy; K31.84 Gastroparesis; L84 Corns and callosities; Z79.82 Long term (current) use of aspirin; Z79.4 Long term (current) use of insulin
CPT/HCPCS: 82962

== ENCOUNTER 2020-11-10 08:59 | Outpatient (CLI) | payer MEDICAID ==
[2020-11-10] MEDS ORDERED: LIDOCAINE (4%) 40 MG/ML TOPICAL SOLN 50 ML BOTTLE TP ONE (09:27)
== END 2020-11-10 09:00 | disposition home or self-care (01) ==
LOC: WOUND 08:59
PROVIDERS: ATTEND Surgery
DX: E11.621 Type 2 diabetes mellitus with foot ulcer (principal); L97.522 Non-pressure chronic ulcer of other part of left foot with fat layer exposed; E11.69 Type 2 diabetes mellitus with other specified complication; M86.372 Chronic multifocal osteomyelitis, left ankle and foot; E11.40 Type 2 diabetes mellitus with diabetic neuropathy, unspecified; E11.22 Type 2 diabetes mellitus with diabetic chronic kidney disease; I13.0 Hypertensive heart and chronic kidney disease with heart failure and stage 1 through stage 4 chronic kidney disease, or unspecified chronic kidney disease; I50.9 Heart failure, unspecified; N18.30 Chronic kidney disease, stage 3 unspecified; E11.43 Type 2 diabetes mellitus with diabetic autonomic (poly)neuropathy; K31.84 Gastroparesis; L84 Corns and callosities; Z79.82 Long term (current) use of aspirin; Z79.4 Long term (current) use of insulin

== ENCOUNTER 2020-11-11 06:22 | Day surgery (SDC) | payer MEDICAID ==
[~2020-11-11 06:22] MED LIST: SODIUM CHLORIDE 0.9% 1000 ML 1,000 ML IV SCH; ceFAZolin/Water 2 GM/20 ML 2 GM/20 ML SYRINGE IV NR
[2020-11-11] MEDS ORDERED: dexAMETHasone 20 MG/5 ML VIAL ONE (07:04)
[2020-11-11] MEDS ORDERED: LIDOCAINE MPF (2%) 20 MG/1 ML VIAL 5 ML ONE (07:04)
[2020-11-11] MEDS ORDERED: ONDANSETRON 4 MG/2 ML INJ ONE (07:04)
[2020-11-11] MEDS ORDERED: ePHEDrine SULFATE 50 MG/1 ML INJ ONE (07:05)
[2020-11-11] MEDS ORDERED: fentaNYL 100 MCG/2 ML INJ ONE (07:05)
[2020-11-11] MEDS ORDERED: propofoL 200 MG/20 ML VIAL IV ONE ×2 (07:05→07:45)
[2020-11-11] MEDS ORDERED: GLYCOPYRROLATE 0.4 MG/2 ML INJ ONE (07:30)
[2020-11-11] MEDS ORDERED: NEOSTIGMINE 10MG/10 ML INJ MDV ONE (07:30)
[2020-11-11] MEDS ORDERED: SUCCINYLCHOLINE CHLORIDE 200 MG/10 ML INJ MDV ONE (07:31)
[2020-11-11] MEDS ORDERED: ROCURONIUM 50 MG/5 ML INJ IV ONE (07:31)
[2020-11-11] MEDS ORDERED: BUPIVACAINE/PF (0.5%) 5 MG/1 ML 30 ML VIAL INFILTRATI ONE ×2 (07:33→09:13)
[2020-11-11] MEDS ORDERED: HEPARIN 10,000 UNITS/10 ML VIAL ONE (07:34)
[2020-11-11] MEDS ORDERED: SODIUM CHLORIDE 0.9% 500 ML 500 ML ONE (07:34)
[2020-11-11] MEDS ORDERED: HYDROmorphone 1 MG/1 ML INJ IV PRN ×2 (07:44)
[2020-11-11] MEDS ORDERED: ONDANSETRON 4 MG/2 ML INJ IV PRN (07:44)
[2020-11-11] MEDS ORDERED: PHENYLEPHRINE/NS 1,000 MCG/10 ML SYRINGE (OR USE) IV ONE (07:45)
--- NOTE | 2020-11-11 07:45 | Anesthesia Day of Surgery ---
Anesthesia Day of Surgery - Day of Surgery Patient Examined: Yes Patient H&P Reviewed: Yes Patient is NPO: Yes
--- NOTE | 2020-11-11 07:49 | Anesthesia Consultation ---
Anesthesia Consult and Med Hx Date of service: 11/11/20 - Airway Anesthetic Teeth Evaluation: Poor (Missing) ROM Head & Neck: Adequate Mental/Hyoid Distance: Adequate Mallampati Class: Class II Intubation Access Assessment: Probably Good - Pre-Operative Health Status ASA Pre-Surgery Classification: ASA4 Proposed Anesthetic Plan: General - Pulmonary Hx Smoking: No Hx Asthma: Yes Hx Respiratory Symptoms: Yes (BARONE) SOB: Yes COPD: No Hx Pneumonia: No Hx Sleep Apnea: No (EL PRESCREEN HIGH-SNORES) - Cardiovascular System Hx Hypertension: No Hx Coronary Artery Disease: No (Had negative heart cath 05/2020) Hx Heart Attack/AMI: No (CHF-EF 60% grade 1 diastolic dysfunction) Hx Angina: No Hx Pacemaker: No Hx Internal Defibrillator: No Hx Heart Murmur: No Hx Peripheral Vascular Disease: (peripheral neuropathy) - Central Nervous System Hx Seizures: No CVA: No Hx Back Pain: Yes (NECK) Hx Psychiatric Problems: No - Gastrointestinal Hx Gastroesophageal Reflux Disease: Yes - Endocrine Hx Renal Disease: Yes (no dialysis) Hx End Stage Renal Disease: Yes (Last HD yesterday) Hx Cirrhosis: No Hx Liver Disease: No Hx Insulin Dependent Diabetes: Yes Hx Non-Insulin Dependent Diabetes: Yes Hx Hypothyroidism: No - Hematic Hx Anemia: Yes Hx Sickle Cell Disease: No - Other Systems Hx Alcohol Use: No Hx Substance Use: Yes (MARRIJUANA USE, last - 02/19/15) Hx Cancer: No Hx Obesity: Yes (Morbid, BMI - 53.0) - Additional Comments Anesthesia Medical History Comments: Pt is unable to lay flat and has been sleeping sitting up for the past three months. Was going to do SC block and now will do GETA. Cardiac records on chart and reviewed.
[2020-11-11 07:58] LABS: Calcium 8.9 mg/dL (8.4-10.2)
[2020-11-11] MEDS ORDERED: MIDAZOLAM 2 MG/2 ML INJ IV NR (08:00)
[2020-11-11] MEDS ORDERED: MIDAZOLAM 2 MG/2 ML INJ ONE (08:29)
[2020-11-11] MEDS ORDERED: HEPARIN 10,000 UNITS/10 ML VIAL IR ONE (09:11)
[2020-11-11] MEDS ORDERED: SODIUM CHLORIDE 0.9% 500 ML IVPB IRRIGATION ONE (09:12)
[2020-11-11] MEDS ORDERED: SODIUM CHLORIDE 0.9% IRR 1,500 ML BOTTLE IR ONE (09:13)
[2020-11-11] MEDS ORDERED: SUGAMMADEX SODIUM 200 MG/2 ML VIAL IV ONE (10:18)
--- NOTE | 2020-11-11 10:34 | Short Stay Summary ---
Short Stay Documentation Date of service: 11/11/20 Narrative H&P: See H&P - History H&P: obtained from office - Allergies and Medications Current Medications: Allergies albuterol Allergy (Severe, Verified 05/30/18 05:24) Unknown tachycardia and tremors morphine Allergy (Verified 09/15/15 18:46) Shortness of Breath piperacillin [From Zosyn] Allergy (Verified 05/29/18 19:50) Unknown sulfamethoxazole [From Bactrim] Allergy (Verified 05/29/18 19:50) Unknown tazobactam [From Zosyn] Allergy (Verified 05/29/18 19:50) Unknown trimethoprim [From Bactrim] Allergy (Verified 05/29/18 19:50) Unknown vancomycin Allergy (Verified 09/15/15 18:46) Itching Home Medications Medication Instructions Recorded Confirmed Last Taken Type DAPTOmycin 800 mg IV Q24HR 42 Days vial 06/09/18 Unknown Rx Advair HFA 230-21 mcg 2 puff IH BID 11/04/20 11/04/20 Unknown History Aspirin [Adult Aspirin] 81 mg PO DAILY 11/04/20 11/04/20 Unknown History Atorvastatin [Lipitor] 40 mg PO DAILY 11/04/20 11/04/20 Unknown History Furosemide [Lasix TAB] 80 mg PO BID 11/04/20 11/04/20 Unknown History Insulin NPH/Regular [NovoLIN 70/30] 60 unit SUB-Q BIDDIAB 11/04/20 Unknown History Levalbuterol [Xopenex] 0.63 mg IH PRN 11/04/20 Unknown History Magnesium Oxide [Magnesium] 400 mg PO DAILY 11/04/20 11/04/20 Unknown History Methoxy Peg-Epoetin Beta [Mircera] 75 mcg IJ QMONTH 11/04/20 11/04/20 Unknown Hi story Metoclopramide 10 mg PO PRN 11/04/20 11/04/20 Unknown History Metoprolol 25 mg PO BID 11/04/20 11/04/20 Unknown History Pantoprazole 40 mg PO DAILY 11/04/20 11/04/20 Unknown History Tizanidine HCl [Zanaflex 2mg CAP] 2 mg PO 3XW 11/04/20 11/04/20 Unknown History hydrOXYzine 25 mg PO TID 11/04/20 11/04/20 Unknown History Active Medications Hydromorphone HCl (Hydromorphone 1 Mg/1 Ml Inj) 0.25 mg IV Q10MIN PRN PRN Reason: Pain, Moderate (4-6) Stop: 11/11/20 23:00 Hydromorphone HCl (Hydromorphone 1 Mg/1 Ml Inj) 0.5 mg IV Q10MIN PRN PRN Reason: Pain , Severe (7-10) Stop: 11/11/20 23:00 Cefazolin Sodium (Ancef/Sterile Water 2 Gm/20 Ml) 2 gm in 20 mls @ 80 mls/hr IV PREOP NR; Protocol Stop: 11/11/20 23:01 Sodium Chloride (Nacl 0.9% 1000 Ml) 1,000 mls @ 42 mls/hr IV DIRECT MARQUISE Midazolam HCl (Midazolam 2 Mg/2 Ml Inj) 2 mg IV PREOP NR Stop: 11/11/20 23:59 Ondansetron HCl (Ondansetron 4 Mg/2 Ml Inj) 4 mg IV ONCE PRN PRN Reason: Nausea And Vomiting Stop: 11/11/20 18:00 - Brief post op/procedure progress note Date of procedure: 11/11/20 Pre-op diagnosis: End-Stage Renal Disease Post-op diagnosis: same Procedure: Creation of Left Brachiocephalic Arteriovenous Fistula Anesthesia: GETA Surgeon: NATALIA ROME Estimated blood loss: minimal Pathology: none Condition: stable - Disposition Condition at discharge: Good Disposition: DC-01 TO HOME OR SELFCARE Short Stay Discharge Plan Activity: other (No heavy lifting with left arm for 2 weeks.) Wound: open to air, keep clean and dry, other (Okay to wash the wound with soap and water but do not soak in water for 2 weeks. You stress ball with left hand as often as possible.) Follow up with: NATALIA ROME MD [Staff Physician] - 14 Days Prescriptions: HYDROcodone/APAP 5-325 [[place] 5/325] 1 each PO Q4HR PRN #30 tablet PRN Reason: Pain
--- NOTE | 2020-11-11 10:36 | Operative Report ---
Operative Report Operative Report: Date of procedure: 11/11/2020 Pre-operative diagnosis: End-Stage Renal Disease Post-operative diagnosis: End-Stage Renal Disease Procedure(s): Creation of Left Brachial Artery to Cephalic Vein Arteriovenous Fistula Surgeon: Nino Britton MD Timber Sprinkler: None Anesthesia: General Endotracheal Anesthesia EBL: Minimal Counts: Correct Complications: None Condition: Stable Findings: Successful creation of left brachiocephalic arteriovenous fistula with palpable thrill and palpable radial pulse at the completion of the case. Specimen: None Indications: The patient is a 40-year-old female with a history of end-stage renal disease who is currently on hemodialysis through a right internal jugular permacath. She is in need of long-term dialysis access and vein mapping demonstrated she is a suitable candidate for creation of a left arm brachiocephalic arteriovenous fistula. She was given the risk, benefits, and alternative procedures and consented to the procedure. Description of Procedure: The patient was brought to the operating room and laid in supine position. After general endotracheal anesthesia was achieved the patient's left arm was prepped and draped in normal sterile fashion. A transverse incision was then made and carried down to the cephalic vein using sharp dissection. The vein was dissected out both proximally and distally and suture ligated and divided distally. I flushed the vein with heparinized saline and flow was controlled with a bulldog clamp. I then dissected out the brachial artery through this incision circumferentially both proximal and distal and controlled the artery with vessel loops. I systemically heparinized the patient with 3000 units of heparin IV and used angled DeBakey clamps to control flow through the artery. I created an arteriotomy using an 11 blade and Wilson scissors. I created an end to side anastomosis between the cephalic vein and brachial artery using a 6-0 Prolene in running fashion. Prior to completing the anastomosis I flashed the artery both proximally and distally and then flushed the anastomosis with heparinized saline to remove any debris. I then completed the anastomosis and removed all clamps allowing flow into the fistula which had an adequate thrill. I achieved hemostasis with a combination of Quick Clot and electrocautery. Once hemostasis had been achieved I closed the wound in 2 layers using a 3-0 Vicryl in a running fashion in the deep dermal layer and a 4-0 Monocryl in running fashion in the subcuticular layer. I then dressed the wound with Dermabond. The patient tolerated the procedure well. All sponge, needle, and instrument counts were correct. The patient was taken to the recovery area in stable condition.
--- NOTE | 2020-11-11 14:18 | Post Anesthesia Evaluation ---
- Post Anesthesia Evaluation Patient Participated: Yes Airway Patent: Yes Stable Respiratory Function: Yes Nausea/Vomiting: No Temp > 96.8F: Yes Pain Manageable: Yes Adequeate Hydration: Yes Anesthesia Complications: No Block Receding Appropriately: Not Applicable Patient on Ventilator: No
[2020-11-11 19:41] VITALS: BP 152/59
== END 2020-11-11 06:23 | disposition home or self-care (01) ==
LOC: OR 06:22
PROVIDERS: ATTEND Surgery Vascular Surgery
DX: I13.2 Hypertensive heart and chronic kidney disease with heart failure and with stage 5 chronic kidney disease, or end stage renal disease (principal); E11.22 Type 2 diabetes mellitus with diabetic chronic kidney disease; I50.9 Heart failure, unspecified; E11.69 Type 2 diabetes mellitus with other specified complication; N18.6 End stage renal disease; E11.621 Type 2 diabetes mellitus with foot ulcer; K21.9 Gastro-esophageal reflux disease without esophagitis; G62.9 Polyneuropathy, unspecified; J45.909 Unspecified asthma, uncomplicated; Z87.440 Personal history of urinary (tract) infections; Z88.8 Allergy status to other drugs, medicaments and biological substances; Z79.899 Other long term (current) drug therapy; Z79.4 Long term (current) use of insulin; Z79.82 Long term (current) use of aspirin; Z98.890 Other specified postprocedural states
CPT/HCPCS: 36821; 80048; 82962; J0330; J0690; J1100; J1644; J2250; J2370; J2405; J2704; J2710; J3010; J7030; J7040

== ENCOUNTER 2020-11-17 09:24 | Outpatient (CLI) | payer MEDICAID ==
[2020-11-17] MEDS ORDERED: LIDOCAINE (4%) 40 MG/ML TOPICAL SOLN 50 ML BOTTLE TP ONE (09:51)
== END 2020-11-17 09:25 | disposition home or self-care (01) ==
LOC: WOUND 09:24
PROVIDERS: ATTEND Surgery
DX: E11.621 Type 2 diabetes mellitus with foot ulcer (principal); L97.522 Non-pressure chronic ulcer of other part of left foot with fat layer exposed; E11.69 Type 2 diabetes mellitus with other specified complication; M86.372 Chronic multifocal osteomyelitis, left ankle and foot; E11.43 Type 2 diabetes mellitus with diabetic autonomic (poly)neuropathy; K31.84 Gastroparesis; E11.22 Type 2 diabetes mellitus with diabetic chronic kidney disease; I13.0 Hypertensive heart and chronic kidney disease with heart failure and stage 1 through stage 4 chronic kidney disease, or unspecified chronic kidney disease; I50.9 Heart failure, unspecified; N18.30 Chronic kidney disease, stage 3 unspecified; L84 Corns and callosities; Z79.82 Long term (current) use of aspirin; Z79.4 Long term (current) use of insulin

== ENCOUNTER 2020-11-24 08:50 | Outpatient (CLI) | payer MEDICAID ==
[2020-11-24] MEDS ORDERED: LIDOCAINE (4%) 40 MG/ML TOPICAL SOLN 50 ML BOTTLE TP ONE (08:58)
== END 2020-11-24 08:51 | disposition home or self-care (01) ==
LOC: WOUND 08:50
PROVIDERS: ATTEND Surgery
DX: E11.621 Type 2 diabetes mellitus with foot ulcer (principal); L97.522 Non-pressure chronic ulcer of other part of left foot with fat layer exposed; E11.69 Type 2 diabetes mellitus with other specified complication; M86.372 Chronic multifocal osteomyelitis, left ankle and foot; E11.43 Type 2 diabetes mellitus with diabetic autonomic (poly)neuropathy; K31.84 Gastroparesis; E11.22 Type 2 diabetes mellitus with diabetic chronic kidney disease; I13.0 Hypertensive heart and chronic kidney disease with heart failure and stage 1 through stage 4 chronic kidney disease, or unspecified chronic kidney disease; I50.9 Heart failure, unspecified; N18.30 Chronic kidney disease, stage 3 unspecified; L84 Corns and callosities; Z79.82 Long term (current) use of aspirin; Z79.4 Long term (current) use of insulin

== ENCOUNTER 2020-12-08 09:00 | Outpatient (CLI) | payer MEDICAID ==
[2020-12-08] MEDS ORDERED: LIDOCAINE (4%) 40 MG/ML TOPICAL SOLN 50 ML BOTTLE TP ONE (10:00)
== END 2020-12-08 09:01 | disposition home or self-care (01) ==
LOC: WOUND 09:00
PROVIDERS: ATTEND Surgery
DX: E11.621 Type 2 diabetes mellitus with foot ulcer (principal); L97.522 Non-pressure chronic ulcer of other part of left foot with fat layer exposed; E11.69 Type 2 diabetes mellitus with other specified complication; M86.372 Chronic multifocal osteomyelitis, left ankle and foot; E11.43 Type 2 diabetes mellitus with diabetic autonomic (poly)neuropathy; K31.84 Gastroparesis; E11.22 Type 2 diabetes mellitus with diabetic chronic kidney disease; I13.0 Hypertensive heart and chronic kidney disease with heart failure and stage 1 through stage 4 chronic kidney disease, or unspecified chronic kidney disease; I50.9 Heart failure, unspecified; N18.30 Chronic kidney disease, stage 3 unspecified; L84 Corns and callosities; Z79.82 Long term (current) use of aspirin; Z79.4 Long term (current) use of insulin

== ENCOUNTER 2020-12-29 09:18 | Outpatient (CLI) | payer MEDICAID ==
[2020-12-29] MEDS ORDERED: LIDOCAINE (4%) 40 MG/ML TOPICAL SOLN 50 ML BOTTLE TP ONE (11:46)
== END 2020-12-29 09:19 | disposition home or self-care (01) ==
LOC: WOUND 09:18
PROVIDERS: ATTEND Surgery
DX: E11.621 Type 2 diabetes mellitus with foot ulcer (principal); L97.522 Non-pressure chronic ulcer of other part of left foot with fat layer exposed; E11.69 Type 2 diabetes mellitus with other specified complication; M86.372 Chronic multifocal osteomyelitis, left ankle and foot; E11.43 Type 2 diabetes mellitus with diabetic autonomic (poly)neuropathy; K31.84 Gastroparesis; E11.22 Type 2 diabetes mellitus with diabetic chronic kidney disease; I13.0 Hypertensive heart and chronic kidney disease with heart failure and stage 1 through stage 4 chronic kidney disease, or unspecified chronic kidney disease; I50.9 Heart failure, unspecified; N18.30 Chronic kidney disease, stage 3 unspecified; L84 Corns and callosities; Z79.82 Long term (current) use of aspirin; Z79.4 Long term (current) use of insulin

== ENCOUNTER 2021-01-06 10:34 | Day surgery (SDC) | payer MEDICAID ==
[~2021-01-06 10:34] MED LIST changes: -SODIUM CHLORIDE 0.9% 1000 ML 1,000 ML IV SCH
--- NOTE | 2021-01-06 12:14 | Anesthesia Day of Surgery ---
Anesthesia Day of Surgery - Day of Surgery Patient Examined: Yes Patient H&P Reviewed: Yes Patient is NPO: Yes
[2021-01-06] MEDS ORDERED: SODIUM CHLORIDE 0.9% 1000 ML 1,000 ML ONE (12:16)
--- NOTE | 2021-01-06 12:17 | Anesthesia Consultation ---
Anesthesia Consult and Med Hx Date of service: 01/06/21 - Airway Anesthetic Teeth Evaluation: Poor (Missing) ROM Head & Neck: Adequate Mental/Hyoid Distance: Adequate Mallampati Class: Class II Intubation Access Assessment: Good - Pre-Operative Health Status ASA Pre-Surgery Classification: ASA4 Nerve Block: IS (GA if needed) - Pulmonary Hx Smoking: No (MARIJUANA) Hx Asthma: Yes Hx Respiratory Symptoms: Yes (BARONE and orthopnea) SOB: Yes COPD: No Hx Pneumonia: No Hx Sleep Apnea: No (EL PRESCREEN HIGH-SNORES) - Cardiovascular System Hx Hypertension: Yes Hx Coronary Artery Disease: No (Had negative heart cath 05/2020) Hx Heart Attack/AMI: No (CHF-EF 60% grade 1 diastolic dysfunction) Hx Angina: No Hx Pacemaker: No Hx Internal Defibrillator: No Hx Heart Murmur: No Hx Peripheral Vascular Disease: (peripheral neuropathy) - Central Nervous System Hx Seizures: No CVA: No Hx Back Pain: Yes (NECK) Hx Psychiatric Problems: No - Gastrointestinal Hx Gastroesophageal Reflux Disease: Yes - Endocrine Hx Renal Disease: Yes Hx End Stage Renal Disease: Yes (Last HD [id number]) Hx Cirrhosis: No Hx Liver Disease: No Hx Insulin Dependent Diabetes: Yes Hx Non-Insulin Dependent Diabetes: Yes Hx Hypothyroidism: No - Hematic Hx Anemia: Yes Hx Sickle Cell Disease: No - Other Systems Hx Alcohol Use: No Hx Substance Use: Yes (MARRIJUANA USE) Hx Cancer: No Hx Obesity: Yes (Morbid, BMI - 65) - Additional Comments Anesthesia Medical History Comments: Pt is unable to lay flat and has been sleeping sitting up for the past three months. Cardiac records on chart and reviewed. Was hospitalized at [facility] last week for sepsis and gastroenteritis
[2021-01-06 12:22] LABS: Hemoglobin 10.6 gm/dl (10.1-14.3); Mean Corpuscular HGB Conc 32 % (30-34); Mean Corpuscular Volume 81 fl (79-97); Platelet Count 301 K/mm3 (140-440); Red Blood Count 4.05 M/mm3 (3.65-5.03)
[2021-01-06 12:25] LABS: Red Cell Distribution Width 24.8 % (13.2-15.2)
[2021-01-06] MEDS ORDERED: SODIUM CHLORIDE 0.9% 500 ML 500 ML ONE (12:32)
[2021-01-06] MEDS ORDERED: HEPARIN 10,000 UNITS/10 ML VIAL ONE (12:32)
[2021-01-06] MEDS ORDERED: BUPIVACAINE/PF (0.5%) 5 MG/1 ML 10 ML VIAL INFILTRATI ONE ×3 (12:32→14:18)
[2021-01-06] MEDS ORDERED: HEPARIN 10,000 UNITS/10 ML VIAL IR ONE (13:00)
[2021-01-06] MEDS ORDERED: SODIUM CHLORIDE 0.9% IRR 1,500 ML BOTTLE IR ONE (13:01)
[2021-01-06] MEDS ORDERED: SODIUM CHLORIDE 0.9% 500 ML IVPB IRRIGATION ONE (13:01)
[2021-01-06 13:07] LABS: Calcium 8.8 mg/dL (8.4-10.2)
[2021-01-06] MEDS ORDERED: LIDOCAINE MPF (2%) 20 MG/1 ML VIAL 5 ML ONE (13:22)
[2021-01-06] MEDS ORDERED: propofoL 200 MG/20 ML VIAL IV ONE (13:22)
[2021-01-06] MEDS ORDERED: fentaNYL 100 MCG/2 ML INJ ONE (13:22)
[2021-01-06] MEDS ORDERED: SUCCINYLCHOLINE CHLORIDE 200 MG/10 ML INJ MDV ONE (13:22)
[2021-01-06] MEDS ORDERED: SODIUM CHLORIDE 0.9% 1000 ML 1,000 ML IV SCH (13:30)
[2021-01-06] MEDS ORDERED: MIDAZOLAM 2 MG/2 ML INJ IV NR (14:00)
[2021-01-06] MEDS ORDERED: ONDANSETRON 4 MG/2 ML INJ ONE (14:13)
[2021-01-06] MEDS ORDERED: PHENYLEPHRINE/NS 1,000 MCG/10 ML SYRINGE (OR USE) IV ONE (14:13)
[2021-01-06] MEDS ORDERED: ePHEDrine SULFATE 50 MG/1 ML INJ ONE (14:16)
[2021-01-06] MEDS ORDERED: HYDROGEN PEROXIDE 118 ML SOLUTION ONE (15:11)
--- NOTE | 2021-01-06 15:26 | Short Stay Summary ---
Short Stay Documentation Date of service: 01/06/21 Narrative H&P: See H&P - History H&P: obtained from office - Allergies and Medications Current Medications: Allergies albuterol Allergy (Severe, Verified 05/30/18 05:24) Unknown tachycardia and tremors morphine Allergy (Verified 09/15/15 18:46) Shortness of Breath piperacillin [From Zosyn] Allergy (Verified 05/29/18 19:50) Unknown sulfamethoxazole [From Bactrim] Allergy (Verified 05/29/18 19:50) Unknown tazobactam [From Zosyn] Allergy (Verified 05/29/18 19:50) Unknown trimethoprim [From Bactrim] Allergy (Verified 05/29/18 19:50) Unknown vancomycin Allergy (Verified 09/15/15 18:46) Itching Home Medications Medication Instructions Recorded Confirmed Last Taken Type Advair HFA 230-21 mcg 2 puff IH BID 11/04/20 01/06/21 11/17/20 08:00 History Aspirin [Adult Aspirin] 81 mg PO DAILY 11/04/20 01/06/21 01/05/21 11:00 History Atorvastatin [Lipitor] 40 mg PO DAILY 11/04/20 01/06/21 01/05/21 23:00 History Furosemide [Lasix TAB] 80 mg PO BID 11/04/20 01/06/21 01/05/21 23:00 History Insulin NPH/Regular [NovoLIN 70/30] 60 unit SUB-Q BIDDIAB 11/04/20 01/06/21 01/05/21 23:00 History Levalbuterol [Xopenex] 0.63 mg IH PRN 11/04/20 01/06/21 01/02/21 23:00 History Magnesium Oxide [Magnesium] 400 mg PO DAILY 11/04/20 01/06/21 01/05/21 11:00 History Methoxy Peg-Epoetin Beta [Mircera] 75 mcg IJ QMONTH 11/04/20 01/06/21 12/01/20 08:00 History Metoclopramide 10 mg PO PRN 11/04/20 01/06/21 01/01/21 08:00 History Metoprolol 12.5 mg PO BID 11/04/20 01/06/21 01/06/21 09:00 History Pantoprazole 40 mg PO DAILY 11/04/20 01/06/21 01/05/21 11:00 History Tizanidine HCl [Zanaflex 2mg CAP] 2 mg PO 3XW 11/04/20 01/06/21 11/17/20 08:00 History hydrOXYzine 25 mg PO TID 11/04/20 01/06/21 01/05/21 23:00 History Active Medications Cefazolin Sodium (Ancef/Sterile Water 2 Gm/20 Ml) 2 gm in 20 mls @ 80 mls/hr IV PREOP NR; Protocol Stop: 01/06/21 23:01 Sodium Chloride (Nacl 0.9% 1000 Ml) 1,000 mls @ 42 mls/hr IV DIRECT MARQUISE Last Admin: 01/06/21 12:20 Dose: 42 mls/hr Documented by: Midazolam HCl (Midazolam 2 Mg/2 Ml Inj) 2 mg IV PREOP NR Stop: 01/06/21 23:59 Last Admin: 01/06/21 13:30 Dose: 2 mg Documented by: - Brief post op/procedure progress note Date of procedure: 01/06/21 Pre-op diagnosis: Complications of Dialysis Access Post-op diagnosis: same Procedure: Revision with Elevation of Left Brachiocephalic Arteriovenous Fistula Anesthesia: GETA Surgeon: NATALIA ROME Estimated blood loss: 50-100ml Pathology: none Condition: stable - Disposition Condition at discharge: Good Disposition: DC-01 TO HOME OR SELFCARE Short Stay Discharge Plan Activity: other (No heavy lifting with left arm for 2 weeks.) Wound: open to air, keep clean and dry, other (Okay to wash the left arm wound with soap and water but do not soak in water for 2 weeks.) Follow up with: NATALIA ROME MD [Staff Physician] - 7 Days Prescriptions: Oxycodone HCl/Acetaminophen [Percocet 7.5/325 mg] 1 each PO Q6HR PRN #40 tablet PRN Reason: Pain
[2021-01-06] MEDS ORDERED: HYDROmorphone 1 MG/1 ML INJ ONE (15:27)
[2021-01-06] MEDS ORDERED: ONDANSETRON 4 MG/2 ML INJ IV PRN (15:29)
[2021-01-06] MEDS ORDERED: HYDROmorphone 1 MG/1 ML INJ IV PRN (15:29)
[2021-01-06] MEDS: HYDROmorphone 1 MG/1 ML INJ IV PRN ×2 (15:30→15:40)
--- NOTE | 2021-01-06 15:31 | Operative Report ---
Operative Report Operative Report: Date of Procedure: 01/06/2021 Pre-operative Diagnosis: Complications of Dialysis Access Post-operative Diagnosis: Same Procedure(s): 1. Revision with Elevation of Left Brachiocephalic Arteriovenous Fistula Surgeon: Nino Britton M.D. Meat Puller: None Anesthesia: General Endotracheal Anesthesia EBL: 100 mL Counts: Correct Complications: None Condition: Stable Findings: Successful revision of left brachiocephalic arteriovenous fistula with palpable thrill of the fistula at the completion of the case. Specimen: None Indication: The patient is a 40-year-old female with a history of end-stage renal disease who is currently on hemodialysis through a right internal jugular permacath. She had a creation of a left brachiocephalic arteriovenous fistula however the fistula was too deep for access so she is in need of revision with elevation. She was given the risk, benefits, and alternative procedures and consented to the procedure. Description of Procedure: The patient was brought to the operating room and laid in supine position. After general endotracheal anesthesia was achieved her left arm was prepped and draped in normal sterile fashion. Ultrasound was used to identify the fistula and a longitudinal incision was made extending from just below the deltoid groove to just above the antecubital crease using a 10 blade. Cautery and sharp dissection was used to carry the dissection down to the fistula. The fistula was dissected circumferentially in all side branches were suture ligated and divided with a combination of 3-0 silk and 2-0 silk. Once the fistula had been dissected circumferentially throughout the length of the incision a superficial pocket was made between the subcutaneous layer and deep dermal layer using cautery on the lateral aspect of the incision.. Once the pocket had been created the fistula was placed within the pocket and secured in place by re approximating the tissue using 3-0 Vicryl in interrupted fashion. Hemostasis within the wound was then achieved with a combination of Quick Clot and cautery. Once hemostasis was achieved the wound was anesthetized with 0.5% Marcaine and closed in 2 layers using a 3-0 Vicryl in running fashion the deep dermal layer, a 4-0 Monocryl in running fashion the subcuticular layer, and dressed with Dermabond. The patient tolerated the procedure well. All sponge, needle, and instrument counts were correct. The patient was taken to the recovery area in stable condition.
[2021-01-06] MEDS ORDERED: MIDAZOLAM 2 MG/2 ML INJ IV ONE (15:40)
[2021-01-06] MEDS ORDERED: HEPARIN 10,000 UNIT/1 ML VIAL ONE (15:45)
[2021-01-06] MEDS ORDERED: HEPARIN 10,000 UNIT/1 ML VIAL IV ONE (16:00)
[2021-01-06 18:49] VITALS: BP 122/64
== END 2021-01-06 10:35 | disposition home or self-care (01) ==
LOC: OR 10:34
PROVIDERS: ATTEND Surgery Vascular Surgery
DX: T82.898A Other specified complication of vascular prosthetic devices, implants and grafts, initial encounter (principal); I13.2 Hypertensive heart and chronic kidney disease with heart failure and with stage 5 chronic kidney disease, or end stage renal disease; E11.22 Type 2 diabetes mellitus with diabetic chronic kidney disease; N18.6 End stage renal disease; I50.9 Heart failure, unspecified; E11.69 Type 2 diabetes mellitus with other specified complication; M19.90 Unspecified osteoarthritis, unspecified site; E11.621 Type 2 diabetes mellitus with foot ulcer; E66.01 Morbid (severe) obesity due to excess calories; K21.9 Gastro-esophageal reflux disease without esophagitis; J45.909 Unspecified asthma, uncomplicated; Z98.890 Other specified postprocedural states; Z87.440 Personal history of urinary (tract) infections; Z68.44 Body mass index [BMI] 60.0-69.9, adult; Z88.5 Allergy status to narcotic agent; Z88.8 Allergy status to other drugs, medicaments and biological substances; Z79.899 Other long term (current) drug therapy; Z79.4 Long term (current) use of insulin; Z79.82 Long term (current) use of aspirin; Y82.8 Other medical devices associated with adverse incidents; Y92.89 Other specified places as the place of occurrence of the external cause
CPT/HCPCS: 36415; 36832; 80048; 82962; 85027; J0330; J0690; J1170; J1644; J2250; J2370; J2405; J2704; J3010; J7030; J7040

== ENCOUNTER 2021-01-12 09:35 | Outpatient (CLI) | payer MEDICAID ==
[2021-01-12] MEDS ORDERED: LIDOCAINE (4%) 40 MG/ML TOPICAL SOLN 50 ML BOTTLE TP ONE ×2 (09:41→13:00)
== END 2021-01-12 09:36 | disposition home or self-care (01) ==
LOC: WOUND 09:35
PROVIDERS: ATTEND Surgery
DX: E11.621 Type 2 diabetes mellitus with foot ulcer (principal); L97.522 Non-pressure chronic ulcer of other part of left foot with fat layer exposed; E11.69 Type 2 diabetes mellitus with other specified complication; M86.372 Chronic multifocal osteomyelitis, left ankle and foot; E11.43 Type 2 diabetes mellitus with diabetic autonomic (poly)neuropathy; K31.84 Gastroparesis; E11.22 Type 2 diabetes mellitus with diabetic chronic kidney disease; I13.0 Hypertensive heart and chronic kidney disease with heart failure and stage 1 through stage 4 chronic kidney disease, or unspecified chronic kidney disease; I50.9 Heart failure, unspecified; N18.30 Chronic kidney disease, stage 3 unspecified; L84 Corns and callosities; Z79.82 Long term (current) use of aspirin; Z79.4 Long term (current) use of insulin

== ENCOUNTER 2021-02-02 09:31 | Outpatient (CLI) | payer OTHER ==
[2021-02-02] MEDS ORDERED: LIDOCAINE (4%) 40 MG/ML TOPICAL SOLN 50 ML BOTTLE TP ONE (09:44)
== END 2021-02-02 09:32 | disposition home or self-care (01) ==
LOC: WOUND 09:31
PROVIDERS: ATTEND Surgery
DX: E11.621 Type 2 diabetes mellitus with foot ulcer (principal); L97.522 Non-pressure chronic ulcer of other part of left foot with fat layer exposed; E11.69 Type 2 diabetes mellitus with other specified complication; M86.372 Chronic multifocal osteomyelitis, left ankle and foot; E11.43 Type 2 diabetes mellitus with diabetic autonomic (poly)neuropathy; K31.84 Gastroparesis; E11.22 Type 2 diabetes mellitus with diabetic chronic kidney disease; I13.0 Hypertensive heart and chronic kidney disease with heart failure and stage 1 through stage 4 chronic kidney disease, or unspecified chronic kidney disease; I50.9 Heart failure, unspecified; N18.30 Chronic kidney disease, stage 3 unspecified; L84 Corns and callosities; Z79.82 Long term (current) use of aspirin; Z79.4 Long term (current) use of insulin

== ENCOUNTER 2021-04-13 09:13 | Outpatient (CLI) | payer OTHER ==
[2021-04-13] MEDS ORDERED: LIDOCAINE (4%) 40 MG/ML TOPICAL SOLN 50 ML BOTTLE TP ONE (09:17)
== END 2021-04-13 09:14 | disposition home or self-care (01) ==
LOC: WOUND 09:13
PROVIDERS: ATTEND Surgery
DX: E11.621 Type 2 diabetes mellitus with foot ulcer (principal); L97.522 Non-pressure chronic ulcer of other part of left foot with fat layer exposed; E11.69 Type 2 diabetes mellitus with other specified complication; M86.372 Chronic multifocal osteomyelitis, left ankle and foot; E11.43 Type 2 diabetes mellitus with diabetic autonomic (poly)neuropathy; K31.84 Gastroparesis; E11.22 Type 2 diabetes mellitus with diabetic chronic kidney disease; I13.0 Hypertensive heart and chronic kidney disease with heart failure and stage 1 through stage 4 chronic kidney disease, or unspecified chronic kidney disease; I50.9 Heart failure, unspecified; N18.30 Chronic kidney disease, stage 3 unspecified; L84 Corns and callosities; Z79.82 Long term (current) use of aspirin; Z79.4 Long term (current) use of insulin

== ENCOUNTER 2021-04-27 09:11 | Outpatient (CLI) | payer OTHER ==
[2021-04-27] MEDS ORDERED: LIDOCAINE (4%) 40 MG/ML TOPICAL SOLN 50 ML BOTTLE TP ONE (09:13)
== END 2021-04-27 09:12 | disposition home or self-care (01) ==
LOC: WOUND 09:11
PROVIDERS: ATTEND Surgery
DX: E11.621 Type 2 diabetes mellitus with foot ulcer (principal); L97.522 Non-pressure chronic ulcer of other part of left foot with fat layer exposed; E11.69 Type 2 diabetes mellitus with other specified complication; M86.372 Chronic multifocal osteomyelitis, left ankle and foot; E11.43 Type 2 diabetes mellitus with diabetic autonomic (poly)neuropathy; K31.84 Gastroparesis; E11.22 Type 2 diabetes mellitus with diabetic chronic kidney disease; I13.0 Hypertensive heart and chronic kidney disease with heart failure and stage 1 through stage 4 chronic kidney disease, or unspecified chronic kidney disease; I50.9 Heart failure, unspecified; N18.30 Chronic kidney disease, stage 3 unspecified; L84 Corns and callosities; Z79.82 Long term (current) use of aspirin; Z79.4 Long term (current) use of insulin

== ENCOUNTER 2021-06-08 08:22 | Outpatient (CLI) | payer OTHER ==
[2021-06-08] MEDS ORDERED: LIDOCAINE (4%) 40 MG/ML TOPICAL SOLN 50 ML BOTTLE TP ONE (08:24)
[2021-06-08] MEDS ORDERED: SILVER NITRATE APPLICATOR 1 EA TP ONE (09:01)
== END 2021-06-08 08:23 | disposition home or self-care (01) ==
LOC: WOUND 08:22
PROVIDERS: ATTEND Surgery
DX: E11.621 Type 2 diabetes mellitus with foot ulcer (principal); L97.522 Non-pressure chronic ulcer of other part of left foot with fat layer exposed; E11.69 Type 2 diabetes mellitus with other specified complication; M86.372 Chronic multifocal osteomyelitis, left ankle and foot; E11.43 Type 2 diabetes mellitus with diabetic autonomic (poly)neuropathy; K31.84 Gastroparesis; E11.22 Type 2 diabetes mellitus with diabetic chronic kidney disease; I13.0 Hypertensive heart and chronic kidney disease with heart failure and stage 1 through stage 4 chronic kidney disease, or unspecified chronic kidney disease; I50.9 Heart failure, unspecified; N18.30 Chronic kidney disease, stage 3 unspecified; L84 Corns and callosities; Z79.82 Long term (current) use of aspirin; Z79.4 Long term (current) use of insulin

== ENCOUNTER 2021-06-22 08:39 | Outpatient (CLI) | payer OTHER ==
[2021-06-22] MEDS ORDERED: LIDOCAINE (4%) 40 MG/ML TOPICAL SOLN 50 ML BOTTLE TP ONE (08:48)
[2021-06-22] MEDS ORDERED: SILVER NITRATE APPLICATOR 1 EA TP ONE ×2 (09:31→10:06)
== END 2021-06-22 08:40 | disposition home or self-care (01) ==
LOC: WOUND 08:39
PROVIDERS: ATTEND Surgery
DX: E11.621 Type 2 diabetes mellitus with foot ulcer (principal); L97.522 Non-pressure chronic ulcer of other part of left foot with fat layer exposed; E11.69 Type 2 diabetes mellitus with other specified complication; M86.372 Chronic multifocal osteomyelitis, left ankle and foot; E11.43 Type 2 diabetes mellitus with diabetic autonomic (poly)neuropathy; K31.84 Gastroparesis; E11.22 Type 2 diabetes mellitus with diabetic chronic kidney disease; I13.0 Hypertensive heart and chronic kidney disease with heart failure and stage 1 through stage 4 chronic kidney disease, or unspecified chronic kidney disease; I50.9 Heart failure, unspecified; N18.30 Chronic kidney disease, stage 3 unspecified; L84 Corns and callosities; Z79.82 Long term (current) use of aspirin; Z79.4 Long term (current) use of insulin

== ENCOUNTER 2021-06-29 08:40 | Outpatient (CLI) | payer OTHER ==
[2021-06-29] MEDS ORDERED: LIDOCAINE (4%) 40 MG/ML TOPICAL SOLN 50 ML BOTTLE TP ONE (08:42)
[2021-06-29] MEDS ORDERED: SILVER NITRATE APPLICATOR 1 EA TP ONE (09:20)
== END 2021-06-29 08:41 | disposition home or self-care (01) ==
LOC: WOUND 08:40
PROVIDERS: ATTEND Surgery
DX: E11.621 Type 2 diabetes mellitus with foot ulcer (principal); L97.526 Non-pressure chronic ulcer of other part of left foot with bone involvement without evidence of necrosis; E11.69 Type 2 diabetes mellitus with other specified complication; M86.372 Chronic multifocal osteomyelitis, left ankle and foot; E11.43 Type 2 diabetes mellitus with diabetic autonomic (poly)neuropathy; K31.84 Gastroparesis; E11.22 Type 2 diabetes mellitus with diabetic chronic kidney disease; I13.0 Hypertensive heart and chronic kidney disease with heart failure and stage 1 through stage 4 chronic kidney disease, or unspecified chronic kidney disease; I50.9 Heart failure, unspecified; N18.30 Chronic kidney disease, stage 3 unspecified; L84 Corns and callosities; Z79.82 Long term (current) use of aspirin; Z79.4 Long term (current) use of insulin

== ENCOUNTER 2021-07-13 08:27 | Outpatient (CLI) | payer OTHER ==
[2021-07-13] MEDS ORDERED: LIDOCAINE (4%) 40 MG/ML TOPICAL SOLN 50 ML BOTTLE TP ONE (08:38)
== END 2021-07-13 08:28 | disposition home or self-care (01) ==
LOC: WOUND 08:27
PROVIDERS: ATTEND Surgery
DX: E11.621 Type 2 diabetes mellitus with foot ulcer (principal); L97.522 Non-pressure chronic ulcer of other part of left foot with fat layer exposed; E11.69 Type 2 diabetes mellitus with other specified complication; M86.372 Chronic multifocal osteomyelitis, left ankle and foot; E11.43 Type 2 diabetes mellitus with diabetic autonomic (poly)neuropathy; K31.84 Gastroparesis; E11.22 Type 2 diabetes mellitus with diabetic chronic kidney disease; I13.0 Hypertensive heart and chronic kidney disease with heart failure and stage 1 through stage 4 chronic kidney disease, or unspecified chronic kidney disease; I50.9 Heart failure, unspecified; N18.30 Chronic kidney disease, stage 3 unspecified; L84 Corns and callosities; Z79.82 Long term (current) use of aspirin; Z79.4 Long term (current) use of insulin

== ENCOUNTER 2021-07-14 12:00 | Outpatient (CLI) | payer OTHER ==
--- NOTE | 2021-07-14 16:04 | Magnetic Resonance Report ---
MR LE nonjoint LT wo con INDICATION: PLANTAR FOOT WOUND. Infection left foot TECHNIQUE: Multiplanar, multisequence MR images were obtained. COMPARISON: None available. FINDINGS: Two soft tissue ulcers are seen along the lateral aspect fifth MTP joint and plantar aspect of fourth MTP joint which extend to bone. There is osseous destruction with decreased T1 and increased T2 sign al intensity within the distal half fourth and fifth metatarsals and fourth and fifth proximal phalan ges characteristic for osteomyelitis with septic arthritis of both fourth and fifth MTP joints. Moder ate dorsal subcutaneous soft tissue edema is present characteristic for cellulitis. Advanced polyarti cular degenerative arthrosis is seen within the first through fourth TMT joints. IMPRESSION: 1. Acute osteomyelitis/septic arthritis involving fourth and fifth TMT joints, fourth and fifth dista l metatarsals and proximal phalanges with adjacent ulcers. 2. Advanced degenerative arthrosis of mid foot. 3. Probable cellulitis involving dorsal aspect left forefoot Signer Name: Werner Cook MD Signed: 07/14/2021 4:00 PM Workstation Name: [id number]
== END 2021-07-14 12:01 | disposition home or self-care (01) ==
LOC: MRI 12:00
PROVIDERS: ATTEND Surgery
DX: M19.072 Primary osteoarthritis, left ankle and foot (principal); E08.621 Diabetes mellitus due to underlying condition with foot ulcer; M86.372 Chronic multifocal osteomyelitis, left ankle and foot

== ENCOUNTER 2021-07-20 09:04 | Outpatient (CLI) | payer OTHER ==
[2021-07-20] MEDS ORDERED: LIDOCAINE (4%) 40 MG/ML TOPICAL SOLN 50 ML BOTTLE TP ONE ×2 (09:22→11:46)
[2021-07-20] MEDS ORDERED: SILVER NITRATE APPLICATOR 1 EA TP ONE (09:58)
== END 2021-07-20 09:05 | disposition home or self-care (01) ==
LOC: WOUND 09:04
PROVIDERS: ATTEND Surgery
DX: E11.621 Type 2 diabetes mellitus with foot ulcer (principal); L97.526 Non-pressure chronic ulcer of other part of left foot with bone involvement without evidence of necrosis; E11.69 Type 2 diabetes mellitus with other specified complication; M86.372 Chronic multifocal osteomyelitis, left ankle and foot; E11.43 Type 2 diabetes mellitus with diabetic autonomic (poly)neuropathy; K31.84 Gastroparesis; E11.22 Type 2 diabetes mellitus with diabetic chronic kidney disease; I13.0 Hypertensive heart and chronic kidney disease with heart failure and stage 1 through stage 4 chronic kidney disease, or unspecified chronic kidney disease; I50.9 Heart failure, unspecified; N18.30 Chronic kidney disease, stage 3 unspecified; L84 Corns and callosities; Z79.82 Long term (current) use of aspirin; Z79.4 Long term (current) use of insulin

== ENCOUNTER 2021-08-03 09:08 | Outpatient (CLI) | payer OTHER ==
[2021-08-03] MEDS ORDERED: LIDOCAINE (4%) 40 MG/ML TOPICAL SOLN 50 ML BOTTLE TP SCH (10:30)
[2021-08-03] MEDS ORDERED: LIDOCAINE (4%) 40 MG/ML TOPICAL SOLN 50 ML BOTTLE TP ONE (16:34)
[2021-08-03] MEDS ORDERED: SILVER NITRATE APPLICATOR 1 EA TP ONE (16:35)
== END 2021-08-03 09:09 | disposition home or self-care (01) ==
LOC: WOUND 09:08
PROVIDERS: ATTEND Surgery
DX: T25.322A Burn of third degree of left foot, initial encounter (principal); T31.0 Burns involving less than 10% of body surface; E11.621 Type 2 diabetes mellitus with foot ulcer; L97.522 Non-pressure chronic ulcer of other part of left foot with fat layer exposed; E11.69 Type 2 diabetes mellitus with other specified complication; M86.372 Chronic multifocal osteomyelitis, left ankle and foot; E11.43 Type 2 diabetes mellitus with diabetic autonomic (poly)neuropathy; K31.84 Gastroparesis; E11.22 Type 2 diabetes mellitus with diabetic chronic kidney disease; I13.0 Hypertensive heart and chronic kidney disease with heart failure and stage 1 through stage 4 chronic kidney disease, or unspecified chronic kidney disease; I50.9 Heart failure, unspecified; N18.30 Chronic kidney disease, stage 3 unspecified; L84 Corns and callosities; Z79.82 Long term (current) use of aspirin; Z79.4 Long term (current) use of insulin; W86.1XXA Exposure to industrial wiring, appliances and electrical machinery, initial encounter; Y93.89 Activity, other specified; Y92.89 Other specified places as the place of occurrence of the external cause; Y99.8 Other external cause status
CPT/HCPCS: 10060; 16020

== ENCOUNTER 2021-09-07 09:38 | Outpatient (CLI) | payer OTHER ==
[2021-09-07] MEDS ORDERED: SILVER NITRATE APPLICATOR 1 EA TP ONE ×2 (10:33→14:22)
[2021-09-07] MEDS ORDERED: LIDOCAINE (4%) 40 MG/ML TOPICAL SOLN 50 ML BOTTLE TP SCH (11:00)
== END 2021-09-07 09:39 | disposition home or self-care (01) ==
LOC: WOUND 09:38
PROVIDERS: ATTEND Surgery
DX: T25.322D Burn of third degree of left foot, subsequent encounter (principal); T31.0 Burns involving less than 10% of body surface; E11.621 Type 2 diabetes mellitus with foot ulcer; L97.526 Non-pressure chronic ulcer of other part of left foot with bone involvement without evidence of necrosis; E11.40 Type 2 diabetes mellitus with diabetic neuropathy, unspecified; E11.69 Type 2 diabetes mellitus with other specified complication; M86.372 Chronic multifocal osteomyelitis, left ankle and foot; E11.43 Type 2 diabetes mellitus with diabetic autonomic (poly)neuropathy; K31.84 Gastroparesis; E11.22 Type 2 diabetes mellitus with diabetic chronic kidney disease; I13.0 Hypertensive heart and chronic kidney disease with heart failure and stage 1 through stage 4 chronic kidney disease, or unspecified chronic kidney disease; N18.9 Chronic kidney disease, unspecified; I50.9 Heart failure, unspecified; Z79.4 Long term (current) use of insulin; Z79.82 Long term (current) use of aspirin; W86.1XXD Exposure to industrial wiring, appliances and electrical machinery, subsequent encounter
CPT/HCPCS: 16020

== ENCOUNTER 2021-09-21 08:52 | Outpatient (CLI) | payer OTHER ==
[2021-09-21] MEDS ORDERED: LIDOCAINE (4%) 40 MG/ML TOPICAL SOLN 50 ML BOTTLE TP ONE (10:05)
== END 2021-09-21 08:53 | disposition home or self-care (01) ==
LOC: WOUND 08:52
PROVIDERS: ATTEND Surgery
DX: T25.322D Burn of third degree of left foot, subsequent encounter (principal); T31.0 Burns involving less than 10% of body surface; E11.621 Type 2 diabetes mellitus with foot ulcer; L97.526 Non-pressure chronic ulcer of other part of left foot with bone involvement without evidence of necrosis; E11.40 Type 2 diabetes mellitus with diabetic neuropathy, unspecified; E11.69 Type 2 diabetes mellitus with other specified complication; M86.372 Chronic multifocal osteomyelitis, left ankle and foot; E11.43 Type 2 diabetes mellitus with diabetic autonomic (poly)neuropathy; K31.84 Gastroparesis; E11.22 Type 2 diabetes mellitus with diabetic chronic kidney disease; I13.0 Hypertensive heart and chronic kidney disease with heart failure and stage 1 through stage 4 chronic kidney disease, or unspecified chronic kidney disease; I50.9 Heart failure, unspecified; N18.9 Chronic kidney disease, unspecified; Z79.4 Long term (current) use of insulin; Z79.82 Long term (current) use of aspirin; W86.1XXD Exposure to industrial wiring, appliances and electrical machinery, subsequent encounter
CPT/HCPCS: 11042; 16020; G0463; 99214

== ENCOUNTER 2021-10-05 08:14 | Outpatient (CLI) | payer OTHER ==
[2021-10-05] MEDS ORDERED: LIDOCAINE (4%) 40 MG/ML TOPICAL SOLN 50 ML BOTTLE TP SCH (08:30)
== END 2021-10-05 08:15 | disposition home or self-care (01) ==
LOC: WOUND 08:14
PROVIDERS: ATTEND Surgery
DX: T25.322D Burn of third degree of left foot, subsequent encounter (principal); T31.0 Burns involving less than 10% of body surface; E11.621 Type 2 diabetes mellitus with foot ulcer; L97.526 Non-pressure chronic ulcer of other part of left foot with bone involvement without evidence of necrosis; E11.40 Type 2 diabetes mellitus with diabetic neuropathy, unspecified; E11.69 Type 2 diabetes mellitus with other specified complication; M86.372 Chronic multifocal osteomyelitis, left ankle and foot; E11.43 Type 2 diabetes mellitus with diabetic autonomic (poly)neuropathy; K31.84 Gastroparesis; E11.22 Type 2 diabetes mellitus with diabetic chronic kidney disease; I13.0 Hypertensive heart and chronic kidney disease with heart failure and stage 1 through stage 4 chronic kidney disease, or unspecified chronic kidney disease; I50.9 Heart failure, unspecified; N18.9 Chronic kidney disease, unspecified; Z79.4 Long term (current) use of insulin; Z79.82 Long term (current) use of aspirin; W86.1XXD Exposure to industrial wiring, appliances and electrical machinery, subsequent encounter
CPT/HCPCS: 16020; 82962

== ENCOUNTER 2021-10-19 08:31 | Outpatient (CLI) | payer OTHER ==
[2021-10-19] MEDS ORDERED: LIDOCAINE (4%) 40 MG/ML TOPICAL SOLN 50 ML BOTTLE TP ONE (08:56)
== END 2021-10-19 08:32 | disposition home or self-care (01) ==
LOC: WOUND 08:31
PROVIDERS: ATTEND Surgery
DX: E11.621 Type 2 diabetes mellitus with foot ulcer (principal); L97.522 Non-pressure chronic ulcer of other part of left foot with fat layer exposed; T25.322D Burn of third degree of left foot, subsequent encounter; T31.0 Burns involving less than 10% of body surface; E11.69 Type 2 diabetes mellitus with other specified complication; M86.372 Chronic multifocal osteomyelitis, left ankle and foot; E11.40 Type 2 diabetes mellitus with diabetic neuropathy, unspecified; E11.43 Type 2 diabetes mellitus with diabetic autonomic (poly)neuropathy; K31.84 Gastroparesis; E11.22 Type 2 diabetes mellitus with diabetic chronic kidney disease; I13.0 Hypertensive heart and chronic kidney disease with heart failure and stage 1 through stage 4 chronic kidney disease, or unspecified chronic kidney disease; I50.9 Heart failure, unspecified; N18.9 Chronic kidney disease, unspecified; L84 Corns and callosities; Z79.82 Long term (current) use of aspirin; Z79.899 Other long term (current) drug therapy; Z79.4 Long term (current) use of insulin; X16.XXXD Contact with hot heating appliances, radiators and pipes, subsequent encounter

== ENCOUNTER 2021-11-02 08:55 | Outpatient (CLI) | payer MEDICARE, OTHER ==
[2021-11-02] MEDS ORDERED: LIDOCAINE (4%) 40 MG/ML TOPICAL SOLN 50 ML BOTTLE TP ONE (08:58)
== END 2021-11-02 08:56 | disposition home or self-care (01) ==
LOC: WOUND 08:55
PROVIDERS: ATTEND Surgery
DX: E11.621 Type 2 diabetes mellitus with foot ulcer (principal); L97.522 Non-pressure chronic ulcer of other part of left foot with fat layer exposed; T25.322D Burn of third degree of left foot, subsequent encounter; T31.0 Burns involving less than 10% of body surface; E11.69 Type 2 diabetes mellitus with other specified complication; M86.372 Chronic multifocal osteomyelitis, left ankle and foot; E11.43 Type 2 diabetes mellitus with diabetic autonomic (poly)neuropathy; K31.84 Gastroparesis; E11.22 Type 2 diabetes mellitus with diabetic chronic kidney disease; I13.0 Hypertensive heart and chronic kidney disease with heart failure and stage 1 through stage 4 chronic kidney disease, or unspecified chronic kidney disease; N18.9 Chronic kidney disease, unspecified; L84 Corns and callosities; Z79.82 Long term (current) use of aspirin; Z79.899 Other long term (current) drug therapy; Z79.4 Long term (current) use of insulin; X16.XXXD Contact with hot heating appliances, radiators and pipes, subsequent encounter

== ENCOUNTER 2021-11-16 09:41 | Outpatient (CLI) | payer MEDICARE, OTHER ==
[2021-11-18] MEDS ORDERED: LIDOCAINE (4%) 40 MG/ML TOPICAL SOLN 50 ML BOTTLE TP ONE (08:00)
[2021-11-18] MEDS ORDERED: VITAMIN A & D OINT 56.7 GM TP ONE (08:00)
== END 2021-11-16 09:42 | disposition home or self-care (01) ==
LOC: WOUND 09:41
PROVIDERS: ATTEND Surgery
DX: E11.621 Type 2 diabetes mellitus with foot ulcer (principal); L97.522 Non-pressure chronic ulcer of other part of left foot with fat layer exposed; L84 Corns and callosities; E11.22 Type 2 diabetes mellitus with diabetic chronic kidney disease; I13.0 Hypertensive heart and chronic kidney disease with heart failure and stage 1 through stage 4 chronic kidney disease, or unspecified chronic kidney disease; N18.30 Chronic kidney disease, stage 3 unspecified; I50.9 Heart failure, unspecified; E11.69 Type 2 diabetes mellitus with other specified complication; M86.372 Chronic multifocal osteomyelitis, left ankle and foot; E11.40 Type 2 diabetes mellitus with diabetic neuropathy, unspecified; E11.43 Type 2 diabetes mellitus with diabetic autonomic (poly)neuropathy; K31.84 Gastroparesis; Z79.4 Long term (current) use of insulin; Z79.82 Long term (current) use of aspirin

== ENCOUNTER 2021-11-30 08:56 | Outpatient (CLI) | payer MEDICARE, OTHER ==
[2021-11-30] MEDS ORDERED: LIDOCAINE (4%) 40 MG/ML TOPICAL SOLN 50 ML BOTTLE TP ONE ×2 (10:04→18:52)
== END 2021-11-30 08:57 | disposition home or self-care (01) ==
LOC: WOUND 08:56
PROVIDERS: ATTEND Surgery
DX: E11.621 Type 2 diabetes mellitus with foot ulcer (principal); L97.526 Non-pressure chronic ulcer of other part of left foot with bone involvement without evidence of necrosis; L84 Corns and callosities; E11.22 Type 2 diabetes mellitus with diabetic chronic kidney disease; I13.0 Hypertensive heart and chronic kidney disease with heart failure and stage 1 through stage 4 chronic kidney disease, or unspecified chronic kidney disease; N18.30 Chronic kidney disease, stage 3 unspecified; I50.9 Heart failure, unspecified; E11.69 Type 2 diabetes mellitus with other specified complication; M86.372 Chronic multifocal osteomyelitis, left ankle and foot; E11.40 Type 2 diabetes mellitus with diabetic neuropathy, unspecified; E11.43 Type 2 diabetes mellitus with diabetic autonomic (poly)neuropathy; K31.84 Gastroparesis; Z79.4 Long term (current) use of insulin; Z79.82 Long term (current) use of aspirin

== ENCOUNTER 2021-12-14 08:55 | Outpatient (CLI) | payer MEDICARE, OTHER ==
[2021-12-14] MEDS ORDERED: LIDOCAINE (4%) 40 MG/ML TOPICAL SOLN 50 ML BOTTLE TP ONE (09:03)
[2021-12-14] MEDS ORDERED: SILVER NITRATE APPLICATOR 1 EA TP ONE (09:41)
== END 2021-12-14 08:56 | disposition home or self-care (01) ==
LOC: WOUND 08:55
PROVIDERS: ATTEND Surgery
DX: E11.621 Type 2 diabetes mellitus with foot ulcer (principal); L97.522 Non-pressure chronic ulcer of other part of left foot with fat layer exposed; L84 Corns and callosities; E11.22 Type 2 diabetes mellitus with diabetic chronic kidney disease; I13.0 Hypertensive heart and chronic kidney disease with heart failure and stage 1 through stage 4 chronic kidney disease, or unspecified chronic kidney disease; N18.30 Chronic kidney disease, stage 3 unspecified; I50.9 Heart failure, unspecified; E11.69 Type 2 diabetes mellitus with other specified complication; M86.372 Chronic multifocal osteomyelitis, left ankle and foot; E11.40 Type 2 diabetes mellitus with diabetic neuropathy, unspecified; E11.43 Type 2 diabetes mellitus with diabetic autonomic (poly)neuropathy; K31.84 Gastroparesis; Z79.4 Long term (current) use of insulin; Z79.82 Long term (current) use of aspirin; Z79.899 Other long term (current) drug therapy

== ENCOUNTER 2022-01-04 08:50 | Outpatient (CLI) | payer MEDICARE, OTHER ==
[2022-01-04] MEDS ORDERED: LIDOCAINE (4%) 40 MG/ML TOPICAL SOLN 50 ML BOTTLE TP ONE (09:26)
[2022-01-04] MEDS ORDERED: SILVER NITRATE APPLICATOR 1 EA TP ONE (10:09)
== END 2022-01-04 08:51 | disposition home or self-care (01) ==
LOC: WOUND 08:50
PROVIDERS: ATTEND Surgery
DX: E11.621 Type 2 diabetes mellitus with foot ulcer (principal); L97.526 Non-pressure chronic ulcer of other part of left foot with bone involvement without evidence of necrosis; L84 Corns and callosities; E11.22 Type 2 diabetes mellitus with diabetic chronic kidney disease; I13.0 Hypertensive heart and chronic kidney disease with heart failure and stage 1 through stage 4 chronic kidney disease, or unspecified chronic kidney disease; N18.30 Chronic kidney disease, stage 3 unspecified; I50.9 Heart failure, unspecified; E11.69 Type 2 diabetes mellitus with other specified complication; M86.372 Chronic multifocal osteomyelitis, left ankle and foot; E11.40 Type 2 diabetes mellitus with diabetic neuropathy, unspecified; E11.43 Type 2 diabetes mellitus with diabetic autonomic (poly)neuropathy; K31.84 Gastroparesis; Z79.4 Long term (current) use of insulin; Z79.82 Long term (current) use of aspirin; Z79.899 Other long term (current) drug therapy

== ENCOUNTER 2022-01-18 09:30 | Outpatient (CLI) | payer MEDICARE, OTHER ==
[2022-01-18] MEDS ORDERED: LIDOCAINE (4%) 40 MG/ML TOPICAL SOLN 50 ML BOTTLE TP SCH (10:00)
== END 2022-01-18 09:31 | disposition home or self-care (01) ==
LOC: WOUND 09:30
PROVIDERS: ATTEND Surgery
DX: E11.621 Type 2 diabetes mellitus with foot ulcer (principal); L97.526 Non-pressure chronic ulcer of other part of left foot with bone involvement without evidence of necrosis; L84 Corns and callosities; E11.22 Type 2 diabetes mellitus with diabetic chronic kidney disease; I13.0 Hypertensive heart and chronic kidney disease with heart failure and stage 1 through stage 4 chronic kidney disease, or unspecified chronic kidney disease; N18.30 Chronic kidney disease, stage 3 unspecified; I50.9 Heart failure, unspecified; E11.69 Type 2 diabetes mellitus with other specified complication; M86.372 Chronic multifocal osteomyelitis, left ankle and foot; E11.40 Type 2 diabetes mellitus with diabetic neuropathy, unspecified; E11.43 Type 2 diabetes mellitus with diabetic autonomic (poly)neuropathy; K31.84 Gastroparesis; Z79.4 Long term (current) use of insulin; Z79.82 Long term (current) use of aspirin; Z79.899 Other long term (current) drug therapy

== ENCOUNTER 2022-01-28 07:49 | Day surgery (SDC) | payer MEDICARE ==
[2022-01-28] MEDS ORDERED: SODIUM CHLORIDE 0.9% 1000 ML 1,000 ML IV SCH (09:00)
--- NOTE | 2022-01-28 09:50 | Anesthesia Consultation ---
Anesthesia Consult and Med Hx Date of service: 01/28/22 - Airway Anesthetic Teeth Evaluation: Poor (#14 and #15 loose) ROM Head & Neck: Adequate Mental/Hyoid Distance: Adequate Mallampati Class: Class I Intubation Access Assessment: Probably Good - Pulmonary Exam CTA: Yes - Cardiac Exam Cardiac Exam: RRR - Pre-Operative Health Status ASA Pre-Surgery Classification: ASA4 Proposed Anesthetic Plan: MAC - Pulmonary Hx Smoking: No (MARIJUANA only) Hx Asthma: Yes Hx Respiratory Symptoms: Yes (BARONE and orthopnea, cough) SOB: Yes COPD: No Hx Pneumonia: No Hx Sleep Apnea: Yes (+CPAP) - Cardiovascular System Hx Hypertension: Yes Hx Coronary Artery Disease: No Hx Heart Attack/AMI: No (CHF-EF 60% ) Hx Angina: No Hx Pacemaker: No Hx Internal Defibrillator: No Hx Heart Murmur: No Hx Peripheral Vascular Disease: Yes (peripheral neuropathy) - Central Nervous System Hx Seizures: No CVA: No Hx Back Pain: Yes Hx Psychiatric Problems: No - Gastrointestinal Hx Gastroesophageal Reflux Disease: Yes (gastroparesis) - Endocrine Hx End Stage Renal Disease: Yes (LAST 01/27/22) Hx Cirrhosis: No Hx Liver Disease: No Hx Insulin Dependent Diabetes: Yes Hx Thyroid Disease: No - Hematic Hx Anemia: Yes Hx Sickle Cell Disease: No - Other Systems Hx Alcohol Use: No Hx Substance Use: Yes (MARIJUANA USE) Hx Cancer: No Hx Obesity: Yes (BMI 70) - Additional Comments Anesthesia Medical History Comments: no hx of anesthetic complications
--- NOTE | 2022-01-28 09:52 | Anesthesia Day of Surgery ---
Anesthesia Day of Surgery - Day of Surgery Patient Examined: Yes Patient H&P Reviewed: Yes Patient is NPO: Yes
[2022-01-28 10:12] LABS: Hematocrit 32.8 % (30.3-42.9); Hemoglobin 10.6 gm/dl (10.1-14.3); Mean Corpuscular HGB Conc 32 % (30-34); Mean Corpuscular Volume 100 fl (79-97); Platelet Count 288 K/mm3 (140-440); Red Blood Count 3.29 M/mm3 (3.65-5.03)
[2022-01-28 10:31] LABS: Partial Thromboplastin Time 26.9 Sec. (24.2-36.6)
[2022-01-28 10:32] LABS: Calcium 8.5 mg/dL (8.4-10.2)
[2022-01-28] MEDS ORDERED: ePHEDrine SULFATE 50 MG/1 ML INJ ONE (10:33)
[2022-01-28] MEDS ORDERED: MIDAZOLAM 2 MG/2 ML INJ ONE (10:39)
[2022-01-28] MEDS ORDERED: KETAMINE/STERILE WATER 50 MG/ML SYRINGE ONE (10:39)
[2022-01-28] MEDS ORDERED: HEPARIN 10,000 UNITS/10 ML VIAL ONE (10:40)
[2022-01-28] MEDS ORDERED: HEPARIN/NS 5000 UNIT/500ML 500 ML IR ONE (10:40)
[2022-01-28] MEDS ORDERED: LIDOCAINE (1%) 10 MG/1 ML VIAL 20 ML MDV ONE (10:41)
--- NOTE | 2022-01-28 11:43 | Short Stay Summary ---
Short Stay Documentation Date of service: 01/28/22 - History Principal diagnosis: Venous stasis ulcer left foot H&P: obtained from office - Allergies and Medications Current Medications: Allergies albuterol Allergy (Severe, Verified 05/30/18 05:24) Unknown tachycardia and tremors morphine Allergy (Verified 09/15/15 18:46) Shortness of Breath piperacillin [From Zosyn] Allergy (Verified 05/29/18 19:50) Unknown sulfamethoxazole [From Bactrim] Allergy (Verified 05/29/18 19:50) Unknown tazobactam [From Zosyn] Allergy (Verified 05/29/18 19:50) Unknown trimethoprim [From Bactrim] Allergy (Verified 05/29/18 19:50) Unknown vancomycin Allergy (Verified 09/15/15 18:46) Itching Home Medications Medication Instructions Recorded Confirmed Last Taken Type Advair HFA 230-21 mcg 2 puff IH BID 11/04/20 01/28/22 11/17/20 08:00 History Aspirin [Adult Aspirin] 81 mg PO DAILY 11/04/20 01/28/22 01/27/22 History 1 TAB Atorvastatin [Lipitor] 40 mg PO DAILY 11/04/20 01/28/22 01/27/22 History 1 TAB Furosemide [Lasix TAB] 80 mg PO DAILY 11/04/20 01/28/22 01/27/22 History 1 TAB Insulin NPH/Regular [NovoLIN 70/30] 60 unit SUB-Q BIDDIAB 11/04/20 01/28/22 01/27/22 History 60 UNITS Levalbuterol [Xopenex] 0.63 mg IH PRN 11/04/20 01/28/22 01/28/22 06:00 History 1 PUFF Metoclopramide 10 mg PO PRN 11/04/20 01/28/22 01/01/21 08:00 History Metoprolol 12.5 mg PO BID 11/04/20 01/28/22 01/27/22 History 2 TABS hydrOXYzine 25 mg PO TID 11/04/20 01/28/22 01/05/21 23:00 History Oxycodone HCl/Acetaminophen 1 each PO Q6HR PRN #40 tablet 01/06/21 01/28/22 Unknown Rx [Percocet 7.5/325 mg] Nystatin 1,000,000 unit MC BID 01/28/22 01/28/22 01/27/22 History 1 TAB Ondansetron (Nf) [Zofran TAB] 8 mg PO Q8HR PRN 01/28/22 01/28/22 01/27/22 History 1 TAB Pantoprazole [Protonix] 40 mg PO QDAY 01/28/22 01/28/22 01/27/22 History 1 TAB Active Medications Sodium Chloride (Nacl 0.9% 1000 Ml) 1,000 mls @ 0 mls/hr IV DIRECT MARQUISE Stop: 01/28/22 20:00 - Brief post op/procedure progress note Date of procedure: 01/28/22 Pre-op diagnosis: Left venous stasis ulcer Post-op diagnosis: same Procedure: Left lower extremity venogram, intravascular ultrasound, stent placement Anesthesia: MAC Surgeon: PADMINI CHINO Estimated blood loss: minimal Pathology: none Condition: stable - Disposition Condition at discharge: Good Disposition: 01 HOME / SELF CARE / HOMELESS Short Stay Discharge Plan Activity: advance as tolerated Weight Bearing Status: Weight Bear as Tolerated Diet: regular Wound: keep clean and dry, per your surgeon's advice Follow up with: [facility] [Other] - 7 Days
--- NOTE | 2022-01-28 11:49 | Operative Report ---
Operative Report Operative Report: Exam: Left lower extremity venogram, left lower extremity intravascular ultrasound, left lower extremity venous stent placement Clinical indication: Patient with a history of severe venous hypertension with persistent left ankle venous stasis ankle ulcer. Patient underwent diagnostic imaging which demonstrates a stenosis below the level of the previously placed stent on the left. Date: 01/28/2022 Procedure: Following an explanation of the risk, benefits and alternatives; written informed consent was obtained. The patient was brought to the angiographic suite and placed in supine position on the examination table. Initial ultrasound evaluation of the right neck demonstrated a patent right internal jugular vein. The patient's right neck was prepped and draped in the usual sterile fashion. 1% lidocaine was used for anesthesia. Under ultrasound guidance, the right internal jugular vein was cannulated with a 7 cm 18-gauge needle. A 0.035 guidewire was advanced centrally under fluoroscopy. The needle was removed and a 5 [place] sheath placed. A vertebral catheter was then advanced over the guidewire and together the guidewire and catheter advanced into the IVC under fluoroscopy. Together the guidewire and catheter were then advanced through the previously placed stent extending from t he common iliac vein to the external iliac vein on the left. The guidewire and catheter were advanced to the proximal femoral vein. The guidewire was removed. Contrast was injected which demonstrates stenosis at the level of the inguinal ligament secondary to extrinsic compression below the level of the previously placed stent. The 5 [place] sheath was then upsized over the guidewire to a 10 [place] sheath. Intravascular ultrasound was then performed over the guidewire. Imaged vessels include the proximal femoral vein, common femoral vein, external iliac vein and common iliac vein. The previously placed stent is widely patent with no in- stent remodeling. Below the level of the stent, there is a 60% stenosis in the common femoral vein with prestenotic dilatation in the proximal femoral vein. A 14 mm x 120 mm Abre stent was then advanced over the guidewire under fluoroscopy and positioned to overlap the previously placed stent and to cover the lesion in the common femoral vein. The stent was deployed. Post stent deployment imaging was performed following contrast injection through the catheter. This demonstrates that the stent has reduce the stenosis to less than 10%. Brisk flow was present from the proximal femoral vein to the visualized portion of the common iliac vein. The catheters, guidewires and sheaths were removed and hemostasis achieved using manual compression. A sterile dressing was applied. The patient tolerated the procedure well. There were no immediate postprocedure complications. Sedation was provided by anesthesia services. Continuous cardiopulmonary monitoring was utilized. Impression: 1) Left lower extremity venogram demonstrating stenosis in the common femoral vein and distal external iliac vein at the level of the inguinal ligament secondary to extrinsic compression. 2) Intravascular ultrasound of the left lower extremity with imaged vessels including the proximal left femoral vein, left common femoral vein, left external iliac vein and left common iliac vein. The previously placed stent extending from the common iliac vein to the external iliac vein is widely patent with no in-stent rebounding or flow- limiting stenosis. Below this level in the distal external iliac vein and common femoral vein there is 60% stenosis with prestenotic dilatation in the proximal femoral vein. 3) Treatment of this lesion with placement of a 14 mm x 120 mm Abre stent. Residual less than 10% stenosis per
[2022-01-28] MEDS ORDERED: ACETAMINOPHEN 500 MG TAB ONE (12:17)
[2022-01-28] MEDS ORDERED: ACETAMINOPHEN 500 MG TAB PO ONE (13:00)
[2022-01-28 13:11] VITALS: BP 107/45
--- NOTE | 2022-01-28 13:25 | Post Anesthesia Evaluation ---
- Post Anesthesia Evaluation Patient Participated: Yes Airway Patent: Yes Stable Respiratory Function: Yes Nausea/Vomiting: No Temp > 96.8F: Yes Pain Manageable: Yes Adequeate Hydration: Yes Anesthesia Complications: No
== END 2022-01-28 07:50 | disposition home or self-care (01) ==
LOC: CATHLABREC 07:49
PROVIDERS: ATTEND Radiology Diagnostic Radiology
DX: I87.1 Compression of vein (principal); E10.65 Type 1 diabetes mellitus with hyperglycemia; E10.69 Type 1 diabetes mellitus with other specified complication; E10.621 Type 1 diabetes mellitus with foot ulcer; E10.42 Type 1 diabetes mellitus with diabetic polyneuropathy; I11.0 Hypertensive heart disease with heart failure; I50.9 Heart failure, unspecified; E78.00 Pure hypercholesterolemia, unspecified; J45.909 Unspecified asthma, uncomplicated; G47.33 Obstructive sleep apnea (adult) (pediatric); K21.9 Gastro-esophageal reflux disease without esophagitis; E66.9 Obesity, unspecified; Z88.5 Allergy status to narcotic agent; Z88.8 Allergy status to other drugs, medicaments and biological substances; Z79.899 Other long term (current) drug therapy; Z79.82 Long term (current) use of aspirin; Z79.4 Long term (current) use of insulin; Z98.890 Other specified postprocedural states; Z68.45 Body mass index [BMI] 70 or greater, adult
CPT/HCPCS: 36415; 37238; 37252; 37253; 75820; 76937; 80048; 85027; 85610; 85730; C1753; C1769; C1876; C1894; J1644; J2250; J3490; J7030; J7121; Q9967

== ENCOUNTER 2022-02-01 11:20 | Outpatient (CLI) | payer MEDICARE ==
[2022-02-01] MEDS ORDERED: LIDOCAINE (4%) 40 MG/ML TOPICAL SOLN 50 ML BOTTLE TP ONE (12:00)
[2022-02-01] MEDS ORDERED: SILVER NITRATE APPLICATOR 1 EA TP ONE (12:00)
== END 2022-02-01 11:21 | disposition home or self-care (01) ==
LOC: WOUND 11:20
PROVIDERS: ATTEND Surgery
DX: E11.621 Type 2 diabetes mellitus with foot ulcer (principal); L97.526 Non-pressure chronic ulcer of other part of left foot with bone involvement without evidence of necrosis; L84 Corns and callosities; E11.22 Type 2 diabetes mellitus with diabetic chronic kidney disease; I13.0 Hypertensive heart and chronic kidney disease with heart failure and stage 1 through stage 4 chronic kidney disease, or unspecified chronic kidney disease; N18.30 Chronic kidney disease, stage 3 unspecified; I50.9 Heart failure, unspecified; E11.69 Type 2 diabetes mellitus with other specified complication; M86.372 Chronic multifocal osteomyelitis, left ankle and foot; E11.40 Type 2 diabetes mellitus with diabetic neuropathy, unspecified; E11.43 Type 2 diabetes mellitus with diabetic autonomic (poly)neuropathy; K31.84 Gastroparesis; Z79.4 Long term (current) use of insulin; Z79.82 Long term (current) use of aspirin; Z79.899 Other long term (current) drug therapy

== ENCOUNTER 2022-03-01 08:54 | Outpatient (CLI) | payer MEDICARE ==
[2022-03-01] MEDS ORDERED: LIDOCAINE (4%) 40 MG/ML TOPICAL SOLN 50 ML BOTTLE TP ONE ×2 (08:58→16:31)
== END 2022-03-01 08:55 | disposition home or self-care (01) ==
LOC: WOUND 08:54
PROVIDERS: ATTEND Surgery
DX: E11.621 Type 2 diabetes mellitus with foot ulcer (principal); L97.526 Non-pressure chronic ulcer of other part of left foot with bone involvement without evidence of necrosis; L84 Corns and callosities; E11.22 Type 2 diabetes mellitus with diabetic chronic kidney disease; I13.0 Hypertensive heart and chronic kidney disease with heart failure and stage 1 through stage 4 chronic kidney disease, or unspecified chronic kidney disease; N18.30 Chronic kidney disease, stage 3 unspecified; I50.9 Heart failure, unspecified; E11.69 Type 2 diabetes mellitus with other specified complication; M86.372 Chronic multifocal osteomyelitis, left ankle and foot; E11.40 Type 2 diabetes mellitus with diabetic neuropathy, unspecified; E11.43 Type 2 diabetes mellitus with diabetic autonomic (poly)neuropathy; K31.84 Gastroparesis; Z79.4 Long term (current) use of insulin; Z79.82 Long term (current) use of aspirin; Z79.899 Other long term (current) drug therapy

== ENCOUNTER 2022-03-15 09:25 | Outpatient (CLI) | payer MEDICARE ==
[2022-03-15] MEDS ORDERED: LIDOCAINE (4%) 40 MG/ML TOPICAL SOLN 50 ML BOTTLE TP ONE (10:17)
== END 2022-03-15 09:26 | disposition home or self-care (01) ==
LOC: WOUND 09:25
PROVIDERS: ATTEND Surgery
DX: E11.621 Type 2 diabetes mellitus with foot ulcer (principal); L97.526 Non-pressure chronic ulcer of other part of left foot with bone involvement without evidence of necrosis; L84 Corns and callosities; E11.22 Type 2 diabetes mellitus with diabetic chronic kidney disease; I13.0 Hypertensive heart and chronic kidney disease with heart failure and stage 1 through stage 4 chronic kidney disease, or unspecified chronic kidney disease; N18.30 Chronic kidney disease, stage 3 unspecified; I50.9 Heart failure, unspecified; E11.69 Type 2 diabetes mellitus with other specified complication; M86.372 Chronic multifocal osteomyelitis, left ankle and foot; E11.40 Type 2 diabetes mellitus with diabetic neuropathy, unspecified; E11.43 Type 2 diabetes mellitus with diabetic autonomic (poly)neuropathy; K31.84 Gastroparesis; Z79.4 Long term (current) use of insulin; Z79.82 Long term (current) use of aspirin; Z79.899 Other long term (current) drug therapy
CPT/HCPCS: 99212; G0463